=== PATIENT | female | born 1955 | race Two or more races ===

== ENCOUNTER 2023-01-28 16:27 | Emergency (ER) | payer MEDICARE, MEDICAID ==
[~2023-01-28] VITALS: Ht 154.9 cm; Wt 79.4 kg
[2023-01-28 17:17] LABS: Basophils # (auto) 0.1 10 ^3/uL (0-0.2); Basophils % (auto) 0.9 % (0.0-2.0); Eosinophils # (auto) 0.3 10 ^3/uL (0-0.8); Eosinophils % (auto) 4.5 % (0.0-7.0); Hematocrit 40.6 % (36.0-46.0); Hemoglobin 13.9 g/dL (12.2-16.2); Lymphocytes # (auto) 2.4 10 ^3/uL (0.4-5.4); Lymphocytes % (auto) 34.9 % (10.0-50.0); Mean Corpuscular Hemoglobin 31.8 pg (28.0-32.0); Mean Corpuscular Hgb Conc. 34.2 g/dL (32.0-36.0); Monocytes # (auto) 0.7 10 ^3/uL (0-1.3); Neutrophils # (auto) 3.4 10 ^3/uL (1.6-8.6); Neutrophils % (auto) 49.7 % (37.0-80.0); Nucleated Red Blood Cells % 0.2 %; Red Blood Cells 4.37 10^6/uL (4.0-5.20); Red Cell Distribution Width 12.5 % (11.8-14.3); White Blood Cell 6.9 10^3/uL (4.4-10.8)
[2023-01-28 17:21] VITALS: PULSE 65; RESP 16; O2SAT 95
[2023-01-28 18:27] LABS: Calcium 8.5 mg/dL (8.5-10.1); Potassium 4.6 mmol/L (3.5-5.1)
[2023-01-28 18:30] LABS: Albumin 3.8 g/dL (3.4-5.0); BUN/Creatinine Ratio 29.3 (10.0-20.0)
[2023-01-28 18:32] LABS: Bilirubin, Total 0.3 mg/dL (0.2-1.0); Total Protein 6.8 g/dL (6.4-8.2)
[2023-01-28 18:55] LABS: Urine Bacteria FEW /hpf (None Seen); Urine Blood Negative /uL (Negative); Urine Clarity Clear (Clear); Urine Color Yellow (Yellow); Urine Mucus FEW (None Seen); Urine Protein, UAD TRACE (Negative); Urine Urobilinogen Normal (Negative); Urine WBC 6 /hpf (0 - 5); Urine pH 5.5 (5.0-8.0)
[2023-01-28 18:57] LABS: Urine Specific Gravity > 1.050 (1.001-1.035)
[2023-01-28 19:32] VITALS: BP 111/65; PULSE 64; RESP 10; TEMP 97.6; O2SAT 97
== END 2023-01-28 19:40 | disposition short-term general hospital (02) ==
LOC: ER 16:27
DX: I63.9 Cerebral infarction, unspecified (principal); Z86.73 Personal history of transient ischemic attack (TIA), and cerebral infarction without residual deficits
CPT/HCPCS: 36415; 70450; 70496; 71045; 80053; 81001; 84484; 85025; 93005; 99285; Q9967

== ENCOUNTER 2023-03-24 15:51 | Inpatient (IN) | payer MEDICARE, MEDICAID ==
[~2023-03-24] VITALS: Ht 154.9 cm; Wt 84.6 kg
[2023-03-24] MEDS ORDERED: methylPREDNISolone SOD SUCC 40 MG/ML VL IV ONE (16:30)
[2023-03-24] MEDS ORDERED: AZITHROMYCIN 500MG/ 250ML 250 ML IV ONE (16:30)
[2023-03-24] MEDS ORDERED: IPRATROPIUM BROM 0.5 MG/2.5ML INH SOL NEB ONE (16:30)
[2023-03-24] MEDS ORDERED: ALBUTEROL SULF 2.5 MG/0.5ML(0.5%) NEB SOLN NEB ONE (16:30)
[2023-03-24] MEDS ORDERED: cefTRIAXone 1GM/50ML D5W 50 ML IV ONE (16:30)
[2023-03-24 16:41] LABS: Basophils # (auto) 0.1 10 ^3/uL (0-0.2); Eosinophils # (auto) 0.7 10 ^3/uL (0-0.8); Eosinophils % (auto) 12.3 % (0.0-7.0); Hematocrit 44.9 % (36.0-46.0); Hemoglobin 15.3 g/dL (12.2-16.2); Lymphocytes # (auto) 2.4 10 ^3/uL (0.4-5.4); Lymphocytes % (auto) 42.5 % (10.0-50.0); Mean Corpuscular Hemoglobin 31.7 pg (28.0-32.0); Mean Corpuscular Volume 93.3 fL (80.0-100.0); Monocytes # (auto) 0.9 10 ^3/uL (0-1.3); Monocytes % (auto) 15.7 % (0.0-12.0); Neutrophils # (auto) 1.6 10 ^3/uL (1.6-8.6); Neutrophils % (auto) 28.5 % (37.0-80.0); Nucleated Red Blood Cells % 0.2 %; Red Blood Cells 4.81 10^6/uL (4.0-5.20); White Blood Cell 5.6 10^3/uL (4.4-10.8)
[2023-03-24 16:54] LABS: Alanine Aminotransferase 22 U/L (7-40); Albumin 4.4 g/dL (3.2-4.8); Alkaline Phosphatase 118 U/L (46-116); Anion Gap 4 (5-15); Aspartate Aminotransferase 25 U/L (13-40); BUN/Creatinine Ratio 18.7 (10.0-20.0); Bilirubin, Total 0.6 mg/dL (0.2-1.0); Blood Urea Nitrogen 14 mg/dL (9-23); Calcium 9.5 mg/dL (8.5-10.1); Carbon Dioxide 31 mmol/L (20-30); Chloride 103 mmol/L (98-107); Glucose 102 mg/dL (74-106); Potassium 4.3 mmol/L (3.5-5.1); Sodium 138 mmol/L (136-145); Total Protein 7.1 g/dL (5.7-8.2)
[2023-03-24 17:40] LABS: Urine Bacteria NONE SEEN /hpf (None Seen); Urine Blood Negative /uL (Negative); Urine Clarity Clear (Clear); Urine Color Yellow (Yellow); Urine Mucus FEW (None Seen); Urine Protein, UAD Negative (Negative); Urine Specific Gravity 1.022 (1.001-1.035); Urine Urobilinogen Normal (Negative); Urine WBC 1 /hpf (0 - 5)
[2023-03-24] MEDS ORDERED: ONDANSETRON HCL 4 MG/2 ML VIAL IV PRN (18:30)
[2023-03-24] MEDS ORDERED: MORPHINE SULFATE INJ 2 MG/ml SYRG IV PRN (18:30)
[2023-03-24] MEDS ORDERED: DOCUSATE SOD 100 MG CAP PO PRN (18:30)
[2023-03-24] MEDS ORDERED: ENOXAPARIN SOD 100 MG/1 ML SYRINGE SC SCH (19:01)
[2023-03-24 19:05] LABS: Base Excess -1.5 mmol/L (-2.0-2.0)
[2023-03-24] MEDS ORDERED: IOHEXOL 350 MG/ML 100ML IJ ONE ×2 (19:10→21:30)
[2023-03-24 19:21] LABS: INR 1.14 (0.9-1.15); Prothrombin Time 11.9 sec (9.3-11.8)
[2023-03-24 19:45] VITALS: BP 135/83; PULSE 108; RESP 18; TEMP 99; O2SAT 93
[2023-03-24] MEDS: IPRATROPIUM BROM 0.5 MG/2.5ML INH SOL NEB SCH (21:42)
[2023-03-24] MEDS: ALBUTEROL SULF 2.5 MG/0.5ML(0.5%) NEB SOLN NEB SCH (21:42)
[2023-03-24 21:44] VITALS: PULSE 107; RESP 16; O2SAT 93
[2023-03-24 21:50] VITALS: PULSE 105; RESP 16; O2SAT 99
[2023-03-24] MEDS ORDERED: TEMAZEPAM 15 MG CAP PO PRN (22:00)
[2023-03-24 23:14] LABS: COVID19 ANTIGEN SOFIA FIA NEGATIVE (NEGATIVE); Rapid Influenza A Negative (Negative)
[2023-03-24 23:19] LABS: Rapid Influenza B Positive (Negative)
[2023-03-24] MEDS: SODIUM CHLORIDE 0.9% 1,000 ML IV SCH (23:53)
[2023-03-25] VITALS (11 sets, daily range): BP systolic 113–117; BP diastolic 55–57; PULSE 101–115; RESP 18–20; TEMP 98.3–98.4; O2SAT 90–98
[2023-03-25] MEDS ORDERED: methylPREDNISolone SOD SUCC 40 MG/ML VL IV SCH
[2023-03-25] MEDS ORDERED: AZITHROMYCIN 500MG/ 250ML 250 ML IV SCH (11:30)
[2023-03-25 11:55] LABS: Basophils # (auto) 0 10 ^3/uL (0-0.2); Basophils % (auto) 0.3 % (0.0-2.0); Eosinophils # (auto) 0 10 ^3/uL (0-0.8); Eosinophils % (auto) 0.1 % (0.0-7.0); Hematocrit 42.3 % (36.0-46.0); Hemoglobin 14.6 g/dL (12.2-16.2); Lymphocytes % (auto) 14.2 % (10.0-50.0); Mean Corpuscular Hemoglobin 32.2 pg (28.0-32.0); Mean Corpuscular Hgb Conc. 34.5 g/dL (32.0-36.0); Mean Corpuscular Volume 93.5 fL (80.0-100.0); Monocytes # (auto) 0.2 10 ^3/uL (0-1.3); Monocytes % (auto) 2.8 % (0.0-12.0); Neutrophils # (auto) 5.6 10 ^3/uL (1.6-8.6); Neutrophils % (auto) 82.6 % (37.0-80.0); Nucleated Red Blood Cells % 0.3 %; Red Blood Cells 4.52 10^6/uL (4.0-5.20); Red Cell Distribution Width 12.9 % (11.8-14.3); White Blood Cell 6.8 10^3/uL (4.4-10.8)
[2023-03-25] MEDS: cefTRIAXone 1GM/50ML D5W 50 ML IV SCH (12:10)
[2023-03-25] MEDS ORDERED: DOXYCYCLINE 100MG/250ML 250 ML IV ONE (12:30)
[2023-03-25 12:41] LABS: Alanine Aminotransferase 16 U/L (7-40); Alkaline Phosphatase 104 U/L (46-116); Anion Gap 9 (5-15); Aspartate Aminotransferase 18 U/L (13-40); BUN/Creatinine Ratio 11.4 (10.0-20.0); Bilirubin, Total 0.3 mg/dL (0.2-1.0); Blood Urea Nitrogen 9 mg/dL (9-23); Calcium 9.2 mg/dL (8.7-10.4); Carbon Dioxide 24 mmol/L (20-30); Chloride 105 mmol/L (98-107); Glucose 207 mg/dL (74-106); Potassium 4.5 mmol/L (3.5-5.1); Sodium 138 mmol/L (136-145); Total Protein 6.7 g/dL (5.7-8.2)
[2023-03-25] MEDS: HCTZ 25 MG TAB PO SCH (12:43)
[2023-03-25] MEDS: PANTOPRAZOLE 40 MG/10 ML VIAL INJ IV SCH (12:43)
[2023-03-25] MEDS: ASPirin 81 mg TAB PO SCH (12:43)
[2023-03-25] MEDS: ALBUTEROL SULF 2.5 MG/0.5ML(0.5%) NEB SOLN NEB SCH ×5 (13:23→22:34)
[2023-03-25] MEDS: IPRATROPIUM BROM 0.5 MG/2.5ML INH SOL NEB SCH ×5 (13:23→22:34)
[2023-03-25] MEDS: SODIUM CHLORIDE 0.9% 1,000 ML IV SCH ×2 (14:55→15:33)
[2023-03-25] MEDS ORDERED: HYDR12.59 PO (18:53)
[2023-03-25] MEDS ORDERED: ALBU108A5 INH (18:53)
[2023-03-25] MEDS ORDERED: DIPH25TA31 PO (18:53)
[2023-03-25] MEDS ORDERED: ASPI-325 PO (18:53)
[2023-03-25] MEDS ORDERED: AMOX875T4 PO (18:53)
[2023-03-25] MEDS: PROMETHAZINE W/CODEINE 5 ML ORAL SYRUP PO PRN (21:53)
[2023-03-26] VITALS (20 sets, daily range): BP systolic 107–123; BP diastolic 51–73; PULSE 85–113; RESP 15–94; TEMP 98–98.7; O2SAT 20–98
[2023-03-26] MEDS: DOXYCYCLINE 100MG/250ML 250 ML IV SCH ×2 (00:12→12:14)
[2023-03-26] MEDS: SODIUM CHLORIDE 0.9% 1,000 ML IV SCH ×2 (00:23→09:50)
[2023-03-26] MEDS: IPRATROPIUM BROM 0.5 MG/2.5ML INH SOL NEB SCH ×5 (02:39→19:50)
[2023-03-26] MEDS: ALBUTEROL SULF 2.5 MG/0.5ML(0.5%) NEB SOLN NEB SCH ×5 (02:39→19:49)
[2023-03-26] MEDS: cefTRIAXone 1GM/50ML D5W 50 ML IV SCH (08:51)
[2023-03-26] MEDS: PROMETHAZINE W/CODEINE 5 ML ORAL SYRUP PO PRN ×2 (09:42→21:33)
[2023-03-26] MEDS: HCTZ 25 MG TAB PO SCH (09:44)
[2023-03-26] MEDS: ASPirin 81 mg TAB PO SCH (09:44)
[2023-03-26] MEDS: PANTOPRAZOLE 40 MG/10 ML VIAL INJ IV SCH (09:45)
[2023-03-26] MEDS: methylPREDNISolone SOD SUCC 40 MG/ML VL IV SCH ×3 (09:45→21:25)
[2023-03-26] MEDS: OSELTAMIVIR 75 MG CAP PO SCH ×2 (09:45→21:24)
[2023-03-26] MEDS: ENOXAPARIN SOD 40 MG/0.4 ML SYRINGE SC SCH (09:46)
[2023-03-27] VITALS (20 sets, daily range): BP systolic 107–127; BP diastolic 59–72; PULSE 92–113; RESP 16–20; TEMP 97.7–98.8; O2SAT 94–100
[2023-03-27] MEDS: DOXYCYCLINE 100MG/250ML 250 ML IV SCH ×2 (00:41→12:17)
[2023-03-27] MEDS: SODIUM CHLORIDE 0.9% 1,000 ML IV SCH ×3 (00:45→16:06)
[2023-03-27] MEDS: IPRATROPIUM BROM 0.5 MG/2.5ML INH SOL NEB SCH ×7 (02:26→22:40)
[2023-03-27] MEDS: ALBUTEROL SULF 2.5 MG/0.5ML(0.5%) NEB SOLN NEB SCH ×6 (02:26→22:40)
[2023-03-27] MEDS: cefTRIAXone 1GM/50ML D5W 50 ML IV SCH (08:39)
[2023-03-27] MEDS: ASPirin 81 mg TAB PO SCH (09:49)
[2023-03-27] MEDS: HCTZ 25 MG TAB PO SCH (09:52)
[2023-03-27] MEDS: OSELTAMIVIR 75 MG CAP PO SCH ×2 (09:54→22:15)
[2023-03-27] MEDS: PROMETHAZINE W/CODEINE 5 ML ORAL SYRUP PO PRN ×2 (09:56→15:29)
[2023-03-27] MEDS: ENOXAPARIN SOD 40 MG/0.4 ML SYRINGE SC SCH (09:57)
[2023-03-27] MEDS: PANTOPRAZOLE 40 MG/10 ML VIAL INJ IV SCH (10:50)
[2023-03-27] MEDS: methylPREDNISolone SOD SUCC 40 MG/ML VL IV SCH ×2 (10:51→22:15)
[2023-03-28] VITALS (19 sets, daily range): BP systolic 107–138; BP diastolic 61–83; PULSE 88–128; RESP 16–83; TEMP 97.6–98.3; O2SAT 92–100
[2023-03-28] MEDS: DOXYCYCLINE 100MG/250ML 250 ML IV SCH ×3 (00:24→23:08)
[2023-03-28] MEDS: IPRATROPIUM BROM 0.5 MG/2.5ML INH SOL NEB SCH ×6 (02:54→21:48)
[2023-03-28] MEDS: ALBUTEROL SULF 2.5 MG/0.5ML(0.5%) NEB SOLN NEB SCH ×6 (02:54→21:47)
[2023-03-28] MEDS: SODIUM CHLORIDE 0.9% 1,000 ML IV SCH ×3 (04:48→22:30)
[2023-03-28] MEDS: cefTRIAXone 1GM/50ML D5W 50 ML IV SCH (08:32)
[2023-03-28] MEDS: PROMETHAZINE W/CODEINE 5 ML ORAL SYRUP PO PRN (08:33)
[2023-03-28] MEDS: ASPirin 81 mg TAB PO SCH (09:45)
[2023-03-28] MEDS: HCTZ 25 MG TAB PO SCH (09:45)
[2023-03-28] MEDS: ENOXAPARIN SOD 40 MG/0.4 ML SYRINGE SC SCH (09:46)
[2023-03-28] MEDS: OSELTAMIVIR 75 MG CAP PO SCH ×2 (09:46→21:19)
[2023-03-28] MEDS: methylPREDNISolone SOD SUCC 40 MG/ML VL IV SCH ×2 (09:46→21:19)
[2023-03-28] MEDS: PANTOPRAZOLE 40 MG/10 ML VIAL INJ IV SCH (09:46)
[2023-03-28] MEDS ORDERED: ALBUTEROL SULF HFA 90MCG INH 200DOSE IN PRN (11:30)
[2023-03-28] MEDS ORDERED: ALBUTEROL SULF 2.5 MG/0.5ML(0.5%) NEB SOLN NEB PRN (11:45)
[2023-03-28] MEDS: guaiFENesin-CODEINE Liq 5 ML UD PO PRN ×2 (17:04→21:19)
[2023-03-29] VITALS (18 sets, daily range): BP systolic 110–132; BP diastolic 55–82; PULSE 84–99; RESP 15–20; TEMP 97.5–98; O2SAT 91–100
[2023-03-29] MEDS: ALBUTEROL SULF 2.5 MG/0.5ML(0.5%) NEB SOLN NEB SCH ×6 (02:04→21:49)
[2023-03-29] MEDS: IPRATROPIUM BROM 0.5 MG/2.5ML INH SOL NEB SCH ×6 (02:04→21:49)
[2023-03-29] MEDS: cefTRIAXone 1GM/50ML D5W 50 ML IV SCH (08:30)
[2023-03-29] MEDS: HCTZ 25 MG TAB PO SCH (08:30)
[2023-03-29] MEDS: ENOXAPARIN SOD 40 MG/0.4 ML SYRINGE SC SCH (08:30)
[2023-03-29] MEDS: OSELTAMIVIR 75 MG CAP PO SCH ×2 (08:30→21:56)
[2023-03-29] MEDS: methylPREDNISolone SOD SUCC 40 MG/ML VL IV SCH (08:30)
[2023-03-29] MEDS: ASPirin 81 mg TAB PO SCH (08:30)
[2023-03-29] MEDS: PANTOPRAZOLE 40 MG/10 ML VIAL INJ IV SCH (08:30)
[2023-03-29] MEDS: SODIUM CHLORIDE 0.9% 1,000 ML IV SCH ×2 (08:42→19:01)
[2023-03-29] MEDS: DOXYCYCLINE 100MG/250ML 250 ML IV SCH (12:09)
[2023-03-29] MEDS ORDERED: predniSONE 20 MG TAB PO ONE (12:15)
[2023-03-29] MEDS: guaiFENesin-CODEINE Liq 5 ML UD PO PRN (19:02)
[2023-03-30] VITALS (12 sets, daily range): BP systolic 115–134; BP diastolic 70–77; PULSE 81–107; RESP 14–19; TEMP 98.2–98.4; O2SAT 90–98
[2023-03-30] MEDS: DOXYCYCLINE 100MG/250ML 250 ML IV SCH ×2 (00:33→12:19)
[2023-03-30] MEDS: ALBUTEROL SULF 2.5 MG/0.5ML(0.5%) NEB SOLN NEB SCH ×4 (02:02→13:45)
[2023-03-30] MEDS: IPRATROPIUM BROM 0.5 MG/2.5ML INH SOL NEB SCH ×4 (02:02→13:45)
[2023-03-30] MEDS: SODIUM CHLORIDE 0.9% 1,000 ML IV SCH ×2 (04:24→09:05)
[2023-03-30] MEDS: ENOXAPARIN SOD 40 MG/0.4 ML SYRINGE SC SCH (09:06)
[2023-03-30] MEDS: HCTZ 25 MG TAB PO SCH (09:06)
[2023-03-30] MEDS: OSELTAMIVIR 75 MG CAP PO SCH (09:06)
[2023-03-30] MEDS: ASPirin 81 mg TAB PO SCH (09:06)
[2023-03-30] MEDS: PANTOPRAZOLE 40 MG/10 ML VIAL INJ IV SCH (09:06)
[2023-03-30] MEDS ORDERED: predniSONE 20 MG TAB PO SCH (10:00)
[2023-03-30] MEDS ORDERED: DOXY-346 PO (10:24)
[2023-03-30] MEDS ORDERED: IPRIH IN (10:24)
[2023-03-30] MEDS ORDERED: PRED20TA2 PO (10:24)
[2023-03-30] MEDS ORDERED: ALBUAER3 IN (10:24)
[2023-03-30 13:52] LABS: Base Excess -0.8 mmol/L (-2.0-2.0)
== END 2023-03-30 16:00 | disposition home or self-care (01) | DRG 177 ==
LOC: ER 15:51 → OVERFLOW 18:33 → EAST 03-25 17:56
PROVIDERS: ADMIT Nurse Practitioner Family; ATTEND Family Medicine
DX: J10.08 Influenza due to other identified influenza virus with other specified pneumonia (principal); J96.01 Acute respiratory failure with hypoxia; J15.69 Pneumonia due to other Gram-negative bacteria; J44.1 Chronic obstructive pulmonary disease with (acute) exacerbation; J45.901 Unspecified asthma with (acute) exacerbation; J44.0 Chronic obstructive pulmonary disease with (acute) lower respiratory infection; J15.9 Unspecified bacterial pneumonia; E78.00 Pure hypercholesterolemia, unspecified; I10 Essential (primary) hypertension; K80.20 Calculus of gallbladder without cholecystitis without obstruction; M19.90 Unspecified osteoarthritis, unspecified site; M81.0 Age-related osteoporosis without current pathological fracture; Z20.822 Contact with and (suspected) exposure to COVID-19; E66.9 Obesity, unspecified; Z68.35 Body mass index [BMI] 35.0-35.9, adult; F17.210 Nicotine dependence, cigarettes, uncomplicated; G47.33 Obstructive sleep apnea (adult) (pediatric); Z86.73 Personal history of transient ischemic attack (TIA), and cerebral infarction without residual deficits; Z85.07 Personal history of malignant neoplasm of pancreas; Z85.05 Personal history of malignant neoplasm of liver; Z85.028 Personal history of other malignant neoplasm of stomach; Z85.01 Personal history of malignant neoplasm of esophagus; Z83.3 Family history of diabetes mellitus; Z82.49 Family history of ischemic heart disease and other diseases of the circulatory system; Z80.0 Family history of malignant neoplasm of digestive organs; Z79.82 Long term (current) use of aspirin
CPT/HCPCS: 36415; 36600; 71045; 71275; 76705; 78226; 80053; 81001; 82805; 82962; 83880; 84484; 85025; 85049; 85379; 85610; 87081; 87426; 87804; 93005; 93970; 94640; 96365; 96368; 96375; C9113; G0378; J0696; J3490

== ENCOUNTER 2023-05-13 13:23 | Inpatient (IN) | payer MEDICARE, MEDICAID ==
[~2023-05-13] VITALS: Ht 154.9 cm; Wt 84.3 kg
[~2023-05-13 13:23] MED LIST: ALBU108A5 INH; ALBUAER3 IN; AMOX875T4 PO; ASPI-325 PO; DIPH25TA31 PO; DOXY-346 PO; HYDR12.59 PO; IPRIH IN; PRED20TA2 PO
[2023-05-13 14:31] LABS: Basophils # (auto) 0 10 ^3/uL (0-0.2); Basophils % (auto) 0.2 % (0.0-2.0); Eosinophils # (auto) 1.4 10 ^3/uL (0-0.8); Eosinophils % (auto) 15.4 % (0.0-7.0); Hematocrit 43.4 % (36.0-46.0); Hemoglobin 15.1 g/dL (12.2-16.2); Lymphocytes # (auto) 2.9 10 ^3/uL (0.4-5.4); Lymphocytes % (auto) 32.5 % (10.0-50.0); Mean Corpuscular Hemoglobin 32.3 pg (28.0-32.0); Mean Corpuscular Hgb Conc. 34.8 g/dL (32.0-36.0); Mean Corpuscular Volume 92.9 fL (80.0-100.0); Monocytes # (auto) 0.8 10 ^3/uL (0-1.3); Monocytes % (auto) 9.1 % (0.0-12.0); Neutrophils # (auto) 3.8 10 ^3/uL (1.6-8.6); Neutrophils % (auto) 42.8 % (37.0-80.0); Nucleated Red Blood Cells % 0.1 %; Red Blood Cells 4.67 10^6/uL (4.0-5.20); Red Cell Distribution Width 12.8 % (11.8-14.3); White Blood Cell 8.9 10^3/uL (4.4-10.8)
[2023-05-13 14:52] LABS: INR 1.12 (0.9-1.15); Partial Thromboplastin Time 28.9 SEC (24.5-34.5); Prothrombin Time 11.7 sec (9.3-11.8)
[2023-05-13] MEDS ORDERED: ALBUTEROL SULF 2.5 MG/0.5ML(0.5%) NEB SOLN NEB ONE (15:00)
[2023-05-13] MEDS ORDERED: methylPREDNISolone SOD SUCC 125 MG/2 ML VL IV ONE (15:00)
[2023-05-13] MEDS ORDERED: IPRATROPIUM BROM 0.5 MG/2.5ML INH SOL NEB ONE (15:00)
[2023-05-13 15:06] LABS: Alanine Aminotransferase 18 U/L (7-40); Albumin 4.5 g/dL (3.2-4.8); Alkaline Phosphatase 135 U/L (46-116); Anion Gap 6 (5-15); Aspartate Aminotransferase 22 U/L (13-40); BUN/Creatinine Ratio 20.5 (10.0-20.0); Blood Urea Nitrogen 16 mg/dL (9-23); Calcium 9.2 mg/dL (8.7-10.4); Carbon Dioxide 30 mmol/L (20-30); Chloride 103 mmol/L (98-107); Glucose 88 mg/dL (74-106); Potassium 3.9 mmol/L (3.5-5.1); Sodium 139 mmol/L (136-145)
[2023-05-13 15:07] LABS: Bilirubin, Total 0.5 mg/dL (0.2-1.0); Total Protein 6.7 g/dL (5.7-8.2)
[2023-05-13] MEDS ORDERED: ALBUTEROL MEDNEB 2.5 mg/3ml NEB ONE (15:57)
[2023-05-13] MEDS ORDERED: ONDANSETRON HCL 4 MG/2 ML VIAL IV PRN (18:45)
[2023-05-13] MEDS ORDERED: DOCUSATE SOD 100 MG CAP PO PRN (18:45)
[2023-05-13 20:15] VITALS: PULSE 96; RESP 16; O2SAT 94
[2023-05-13] MEDS ORDERED: IOHEXOL 350 MG/ML 100ML IJ ONE (20:25)
[2023-05-13 21:11] VITALS: BP 136/64; PULSE 96; RESP 16; O2SAT 94
[2023-05-13] MEDS: methylPREDNISolone SOD SUCC 40 MG/ML VL IV SCH (22:00)
[2023-05-13 22:50] VITALS: PULSE 91; RESP 18; O2SAT 92
[2023-05-13] MEDS: ALBUTEROL MEDNEB 2.5 mg/3ml NEB NEB SCH (22:58)
[2023-05-13] MEDS: IPRATROPIUM BROM 0.5 MG/2.5ML INH SOL NEB SCH (22:58)
[2023-05-13 23:00] VITALS: PULSE 93; RESP 18; O2SAT 95
[2023-05-13 23:18] VITALS: BP 105/44; PULSE 98; RESP 20; TEMP 98.1; O2SAT 100
[2023-05-13] MEDS ORDERED: PRAV20TA3 PO (23:21)
[2023-05-13] MEDS ORDERED: OMEG1CAP36 PO (23:22)
[2023-05-13] MEDS ORDERED: NITR1CAP23 PO (23:23)
[2023-05-13] MEDS ORDERED: DOCU1CAP46 PO (23:26)
[2023-05-13] MEDS ORDERED: IBUP-1455 PO (23:46)
[2023-05-13] MEDS ORDERED: CIPR500T4 PO (23:46)
[2023-05-13] MEDS ORDERED: HYDR-4902 PO (23:47)
[2023-05-14] VITALS (17 sets, daily range): BP systolic 104–121; BP diastolic 57–79; PULSE 88–117; RESP 16–20; TEMP 98.2–98.4; O2SAT 93–98
[2023-05-14] MEDS: ACETAMINOPHEN 325 MG TAB PO PRN ×2 (00:06→13:56)
[2023-05-14] MEDS: methylPREDNISolone SOD SUCC 40 MG/ML VL IV SCH ×3 (05:24→22:07)
[2023-05-14 05:55] LABS: Basophils # (auto) 0 10 ^3/uL (0-0.2); Basophils % (auto) 0.5 % (0.0-2.0); Eosinophils # (auto) 0 10 ^3/uL (0-0.8); Eosinophils % (auto) 0.1 % (0.0-7.0); Hematocrit 43.4 % (36.0-46.0); Hemoglobin 14.9 g/dL (12.2-16.2); Lymphocytes # (auto) 0.9 10 ^3/uL (0.4-5.4); Lymphocytes % (auto) 16.3 % (10.0-50.0); Mean Corpuscular Hemoglobin 31.9 pg (28.0-32.0); Mean Corpuscular Hgb Conc. 34.3 g/dL (32.0-36.0); Mean Corpuscular Volume 93.1 fL (80.0-100.0); Monocytes # (auto) 0 10 ^3/uL (0-1.3); Monocytes % (auto) 0.8 % (0.0-12.0); Neutrophils # (auto) 4.3 10 ^3/uL (1.6-8.6); Neutrophils % (auto) 82.3 % (37.0-80.0); Nucleated Red Blood Cells % 0.1 %; Red Blood Cells 4.66 10^6/uL (4.0-5.20); Red Cell Distribution Width 12.8 % (11.8-14.3); White Blood Cell 5.3 10^3/uL (4.4-10.8)
[2023-05-14 06:04] LABS: Alanine Aminotransferase 16 U/L (7-40); Albumin 4.4 g/dL (3.2-4.8); Alkaline Phosphatase 119 U/L (46-116); Anion Gap 10 (5-15); Aspartate Aminotransferase 17 U/L (13-40); BUN/Creatinine Ratio 18.6 (10.0-20.0); Blood Urea Nitrogen 16 mg/dL (9-23); Calcium 9.4 mg/dL (8.7-10.4); Carbon Dioxide 27 mmol/L (20-30); Chloride 101 mmol/L (98-107); Glucose 166 mg/dL (74-106); Potassium 3.6 mmol/L (3.5-5.1); Sodium 138 mmol/L (136-145)
[2023-05-14 06:05] LABS: Bilirubin, Total 0.5 mg/dL (0.2-1.0); Total Protein 6.8 g/dL (5.7-8.2)
[2023-05-14] MEDS: ALBUTEROL MEDNEB 2.5 mg/3ml NEB NEB SCH ×5 (06:56→22:17)
[2023-05-14] MEDS: IPRATROPIUM BROM 0.5 MG/2.5ML INH SOL NEB SCH ×5 (06:56→22:17)
[2023-05-14] MEDS: ASPirin-EC 81 mg tab PO SCH (10:14)
[2023-05-14] MEDS: hydroCHLOROthiazide 25 MG TAB PO SCH (10:15)
[2023-05-14] MEDS: PANTOPRAZOLE 40 MG TAB PO SCH (10:15)
[2023-05-15] VITALS (17 sets, daily range): BP systolic 91–103; BP diastolic 45–56; PULSE 83–106; RESP 18–20; TEMP 97.8–98.8; O2SAT 92–98
[2023-05-15] MEDS: methylPREDNISolone SOD SUCC 40 MG/ML VL IV SCH ×3 (06:27→22:16)
[2023-05-15] MEDS: IPRATROPIUM BROM 0.5 MG/2.5ML INH SOL NEB SCH ×5 (06:37→22:07)
[2023-05-15] MEDS: ALBUTEROL MEDNEB 2.5 mg/3ml NEB NEB SCH ×5 (06:37→22:07)
[2023-05-15] MEDS: ASPirin-EC 81 mg tab PO SCH (10:10)
[2023-05-15] MEDS: PANTOPRAZOLE 40 MG TAB PO SCH (10:10)
[2023-05-15] MEDS: hydroCHLOROthiazide 25 MG TAB PO SCH (10:11)
[2023-05-15] MEDS ORDERED: AZITHROMYCIN 250 MG TAB PO ONE (17:00)
[2023-05-15] MEDS ORDERED: DOCUSATE SOD 100 MG CAP PO ONE (17:00)
[2023-05-15] MEDS: DOCUSATE SOD 100 MG CAP PO SCH (22:16)
[2023-05-16] VITALS (11 sets, daily range): BP systolic 106–108; BP diastolic 53–66; PULSE 84–106; RESP 16–20; TEMP 37; O2SAT 90–99
[2023-05-16] MEDS: methylPREDNISolone SOD SUCC 40 MG/ML VL IV SCH ×2 (05:13→14:08)
[2023-05-16] MEDS: IPRATROPIUM BROM 0.5 MG/2.5ML INH SOL NEB SCH ×3 (07:03→14:28)
[2023-05-16] MEDS: ALBUTEROL MEDNEB 2.5 mg/3ml NEB NEB SCH ×3 (07:03→14:28)
[2023-05-16] MEDS: ASPirin-EC 81 mg tab PO SCH (09:05)
[2023-05-16] MEDS: PANTOPRAZOLE 40 MG TAB PO SCH (09:06)
[2023-05-16] MEDS: DOCUSATE SOD 100 MG CAP PO SCH (09:06)
[2023-05-16] MEDS: hydroCHLOROthiazide 25 MG TAB PO SCH (09:09)
[2023-05-16] MEDS: ACETAMINOPHEN 325 MG TAB PO PRN ×2 (09:12→15:54)
[2023-05-16] MEDS ORDERED: AZITHROMYCIN 250 MG TAB PO SCH (10:00)
[2023-05-16] MEDS ORDERED: AZIT500T PO (16:38)
[2023-05-16] MEDS ORDERED: PRED10TA PO ×2 (16:40→16:41)
[2023-05-16] MEDS ORDERED: PANT40TA2 PO (16:43)
== END 2023-05-16 19:12 | disposition home or self-care (01) | DRG 203 ==
LOC: ER 13:23 → WEST WING 18:40 → OVERFLOW 18:40 → WEST WING 23:12
PROVIDERS: ADMIT Nurse Practitioner Family; ATTEND Internal Medicine
DX: J45.901 Unspecified asthma with (acute) exacerbation (principal); I10 Essential (primary) hypertension; E66.9 Obesity, unspecified; R09.02 Hypoxemia; K80.20 Calculus of gallbladder without cholecystitis without obstruction; R59.9 Enlarged lymph nodes, unspecified; Z86.73 Personal history of transient ischemic attack (TIA), and cerebral infarction without residual deficits; Z68.35 Body mass index [BMI] 35.0-35.9, adult
CPT/HCPCS: 36415; 36600; 71045; 71275; 76536; 80053; 82805; 83735; 83880; 84484; 85025; 85379; 85610; 85730; 93005; 93306; 94640; 96374; 99291; G0378

== ENCOUNTER 2023-05-25 10:59 | Inpatient (IN) | payer MEDICARE, MEDICAID ==
[~2023-05-25] VITALS: Ht 154.9 cm; Wt 82.0 kg
[~2023-05-25 10:59] MED LIST changes: -AMOX875T4 PO; +AZIT500T PO; -DIPH25TA31 PO; -DOXY-346 PO; +OMEG1CAP36 PO; +PANT40TA2 PO; +PRAV20TA3 PO; +PRED10TA PO
[2023-05-25] MEDS ORDERED: IPRATROPIUM BROM 0.5 MG/2.5ML INH SOL HHN ONE ×2 (11:30→17:45)
[2023-05-25] MEDS ORDERED: methylPREDNISolone SOD SUCC 125 MG/2 ML VL IV ONE (11:30)
[2023-05-25] MEDS ORDERED: ALBUTEROL SULF 2.5 MG/0.5ML(0.5%) NEB SOLN HHN ONE ×2 (11:30→17:45)
[2023-05-25 12:04] LABS: Basophils # (auto) 0.1 10 ^3/uL (0-0.2); Basophils % (auto) 0.4 % (0.0-2.0); Eosinophils # (auto) 0.7 10 ^3/uL (0-0.8); Eosinophils % (auto) 6.1 % (0.0-7.0); Hematocrit 42.9 % (36.0-46.0); Hemoglobin 14.5 g/dL (12.2-16.2); Lymphocytes # (auto) 0.8 10 ^3/uL (0.4-5.4); Lymphocytes % (auto) 7.2 % (10.0-50.0); Mean Corpuscular Hemoglobin 31.9 pg (28.0-32.0); Mean Corpuscular Hgb Conc. 33.8 g/dL (32.0-36.0); Mean Corpuscular Volume 94.5 fL (80.0-100.0); Monocytes # (auto) 0.6 10 ^3/uL (0-1.3); Monocytes % (auto) 5.1 % (0.0-12.0); Neutrophils # (auto) 9.5 10 ^3/uL (1.6-8.6); Neutrophils % (auto) 81.2 % (37.0-80.0); Red Blood Cells 4.55 10^6/uL (4.0-5.20); Red Cell Distribution Width 13.1 % (11.8-14.3); White Blood Cell 11.8 10^3/uL (4.4-10.8)
[2023-05-25 12:21] LABS: Alanine Aminotransferase 15 U/L (7-40); Albumin 4.3 g/dL (3.2-4.8); Alkaline Phosphatase 105 U/L (46-116); Anion Gap 7 (5-15); Aspartate Aminotransferase 17 U/L (13-40); Bilirubin, Total 0.6 mg/dL (0.2-1.0); Carbon Dioxide 26 mmol/L (20-30); Chloride 104 mmol/L (98-107); Glucose 95 mg/dL (74-106); Sodium 137 mmol/L (136-145); Total Protein 6.6 g/dL (5.7-8.2)
[2023-05-25 12:23] LABS: BUN/Creatinine Ratio 7.5 (10.0-20.0); Blood Urea Nitrogen < 5 mg/dL (9-23)
[2023-05-25] MEDS ORDERED: ACETAMINOPHEN 325 MG TAB PO ONE (13:15)
[2023-05-25] MEDS ORDERED: METH4PAK PO (16:49)
[2023-05-25] MEDS ORDERED: AZIT1POW PO (16:49)
[2023-05-25 20:21] LABS: COVID19 ANTIGEN SOFIA FIA NEGATIVE (NEGATIVE); Rapid Influenza A Negative (Negative); Rapid Influenza B Negative (Negative)
[2023-05-26] VITALS (9 sets, daily range): BP systolic 115–158; BP diastolic 61–86; PULSE 77–110; RESP 16–27; TEMP 97.7–98.5; O2SAT 91–94
[2023-05-26] MEDS ORDERED: IPRATROPIUM BROM 0.5 MG/2.5ML INH SOL NEB PRN (05:30)
[2023-05-26] MEDS ORDERED: ACETAMINOPHEN 325 MG TAB PO PRN (05:30)
[2023-05-26] MEDS ORDERED: ONDANSETRON HCL 4 MG/2 ML VIAL IV PRN (05:30)
[2023-05-26] MEDS ORDERED: ALBUTEROL SULF 2.5 MG/0.5ML(0.5%) NEB SOLN NEB PRN (05:30)
[2023-05-26] MEDS ORDERED: NITROGLYCERIN 0.4 MG SL TAB SL PRN (05:30)
[2023-05-26] MEDS ORDERED: MORPHINE SULFATE INJ 2 MG/ml SYRG IV PRN (05:30)
[2023-05-26] MEDS: methylPREDNISolone SOD SUCC 40 MG/ML VL IV SCH ×2 (06:22→21:23)
[2023-05-26 07:01] LABS: Hematocrit 42.5 % (36.0-46.0); Hemoglobin 14.2 g/dL (12.2-16.2); Mean Corpuscular Hemoglobin 31.9 pg (28.0-32.0); Mean Corpuscular Hgb Conc. 33.4 g/dL (32.0-36.0); Mean Corpuscular Volume 95.3 fL (80.0-100.0); Red Blood Cells 4.46 10^6/uL (4.0-5.20); Red Cell Distribution Width 13.3 % (11.8-14.3); White Blood Cell 12.1 10^3/uL (4.4-10.8)
[2023-05-26 07:06] LABS: Basophils % (manual) 0 (0.0-2.0); Blast Cells 0; Eosinophils % (manual) 0 (0-7); Myelocytes % 0; Promyelocytes % 0; Reactive Lymphocytes 0
[2023-05-26 07:15] LABS: Alanine Aminotransferase 18 U/L (7-40); Alkaline Phosphatase 99 U/L (46-116); Anion Gap 7 (5-15); Aspartate Aminotransferase 11 U/L (13-40); BUN/Creatinine Ratio 18.8 (10.0-20.0); Blood Urea Nitrogen 13 mg/dL (9-23); Calcium 9.1 mg/dL (8.7-10.4); Carbon Dioxide 25 mmol/L (20-30); Chloride 105 mmol/L (98-107); Glucose 138 mg/dL (74-106); Potassium 4.3 mmol/L (3.5-5.1); Sodium 137 mmol/L (136-145)
[2023-05-26 07:16] LABS: Albumin 4.3 g/dL (3.2-4.8); Bilirubin, Total 0.5 mg/dL (0.2-1.0); Total Protein 6.6 g/dL (5.7-8.2)
[2023-05-26] MEDS ORDERED: OMEP20TA PO (08:48)
[2023-05-26 09:34] LABS: Band Neutrophils % (manual) 7; Lymphocytes % (manual) 3 (10.0-50.0); Metamyelocytes % 2; Monocytes % (manual) 3 (0-12); Platelet Estimate Adequate
[2023-05-26] MEDS ORDERED: ENOXAPARIN SOD 40 MG/0.4 ML SYRINGE SC ONE (13:15)
[2023-05-26] MEDS ORDERED: ALBUTEROL SULF 2.5 MG/0.5ML(0.5%) NEB SOLN NEB SCH (13:30)
[2023-05-26] MEDS ORDERED: IPRATROPIUM BROM 0.5 MG/2.5ML INH SOL NEB SCH (13:30)
[2023-05-26] MEDS: ALBUTEROL SULF 2.5 MG/0.5ML(0.5%) NEB SOLN NEB SCH (16:33)
[2023-05-26] MEDS: IPRATROPIUM BROM 0.5 MG/2.5ML INH SOL NEB SCH (16:33)
[2023-05-27] VITALS (8 sets, daily range): BP systolic 105–136; BP diastolic 71–77; PULSE 73–90; RESP 18–81; TEMP 97.7–97.9; O2SAT 89–95
[2023-05-27] MEDS: ALBUTEROL SULF 2.5 MG/0.5ML(0.5%) NEB SOLN NEB SCH ×2 (07:01→11:48)
[2023-05-27] MEDS: IPRATROPIUM BROM 0.5 MG/2.5ML INH SOL NEB SCH ×2 (07:01→11:48)
[2023-05-27 07:19] LABS: Basophils # (auto) 0 10 ^3/uL (0-0.2); Basophils % (auto) 0.1 % (0.0-2.0); Eosinophils # (auto) 0 10 ^3/uL (0-0.8); Hematocrit 41.3 % (36.0-46.0); Hemoglobin 13.8 g/dL (12.2-16.2); Lymphocytes % (auto) 5.4 % (10.0-50.0); Mean Corpuscular Hemoglobin 31.8 pg (28.0-32.0); Mean Corpuscular Hgb Conc. 33.5 g/dL (32.0-36.0); Mean Corpuscular Volume 94.9 fL (80.0-100.0); Monocytes # (auto) 0.6 10 ^3/uL (0-1.3); Monocytes % (auto) 3.2 % (0.0-12.0); Neutrophils # (auto) 16.7 10 ^3/uL (1.6-8.6); Neutrophils % (auto) 91.3 % (37.0-80.0); Red Blood Cells 4.35 10^6/uL (4.0-5.20); Red Cell Distribution Width 13.3 % (11.8-14.3); White Blood Cell 18.3 10^3/uL (4.4-10.8)
[2023-05-27 07:20] LABS: Anion Gap 9 (5-15); Carbon Dioxide 27 mmol/L (20-30); Chloride 104 mmol/L (98-107); Potassium 4.5 mmol/L (3.5-5.1); Sodium 140 mmol/L (136-145)
[2023-05-27 07:21] LABS: Calcium 9.3 mg/dL (8.5-10.1)
[2023-05-27 07:22] LABS: INR 1.09 (0.9-1.15); Prothrombin Time 11.4 sec (9.3-11.8)
[2023-05-27 07:26] LABS: BUN/Creatinine Ratio 23.5 (10.0-20.0); Blood Urea Nitrogen 16 mg/dL (9-23); Glucose 122 mg/dL (74-106); Triglycerides 107 mg/dL (< 150)
[2023-05-27 07:27] LABS: LDL Cholesterol 130 mg/dL (< 100)
[2023-05-27 07:28] LABS: Cholesterol 197 mg/dL (< 200); HDL Cholesterol 55 mg/dL (40-59)
[2023-05-27 08:00] LABS: Magnesium 2.4 mg/dL (1.6-2.6)
[2023-05-27] MEDS: methylPREDNISolone SOD SUCC 40 MG/ML VL IV SCH (09:38)
[2023-05-27 09:53] LABS: Base Excess 0.7 mmol/L (-2.0-2.0)
[2023-05-27] MEDS ORDERED: ENOXAPARIN SOD 40 MG/0.4 ML SYRINGE SC SCH (10:00)
[2023-05-27] MEDS ORDERED: PANTOPRAZOLE 40 MG TAB PO SCH (10:00)
[2023-05-27] MEDS ORDERED: hydroCHLOROthiazide 25 MG TAB PO SCH (10:00)
[2023-05-27] MEDS ORDERED: ASPirin-EC 81 mg tab PO SCH (10:00)
[2023-05-27] MEDS ORDERED: AZIT500T66 PO (10:16)
[2023-05-27] MEDS ORDERED: FLUT1AER3 IN (10:16)
[2023-05-27] MEDS ORDERED: PRED20TA2 PO (10:16)
[2023-05-27] MEDS ORDERED: PRAVASTATIN SODIUM 20 MG TAB PO SCH (22:00)
== END 2023-05-27 15:20 | disposition home or self-care (01) | DRG 189 ==
LOC: ER 10:59 → TELE 05-26 05:30 → TELE-WESTW 05-26 08:18
PROVIDERS: ADMIT Internal Medicine Pulmonary Disease; ATTEND Internal Medicine Pulmonary Disease
DX: J96.20 Acute and chronic respiratory failure, unspecified whether with hypoxia or hypercapnia (principal); J45.901 Unspecified asthma with (acute) exacerbation; J44.1 Chronic obstructive pulmonary disease with (acute) exacerbation; Z20.822 Contact with and (suspected) exposure to COVID-19; E78.5 Hyperlipidemia, unspecified; E66.9 Obesity, unspecified; I10 Essential (primary) hypertension; Z68.34 Body mass index [BMI] 34.0-34.9, adult; Z86.73 Personal history of transient ischemic attack (TIA), and cerebral infarction without residual deficits; Z87.891 Personal history of nicotine dependence; Z90.710 Acquired absence of both cervix and uterus
CPT/HCPCS: 36415; 36600; 71046; 80048; 80053; 80061; 82805; 83735; 83880; 84443; 85007; 85025; 85027; 85379; 85610; 87081; 87426; 87804; 94640; 96374; 97110; 97116; 97163; 97530; G0378

== ENCOUNTER 2023-06-10 09:21 | Emergency (ER) | payer MEDICARE, MEDICAID ==
[~2023-06-10] VITALS: Ht 154.9 cm; Wt 82.8 kg
[~2023-06-10 09:21] MED LIST changes: -AZIT500T PO; +AZIT500T66 PO; +FLUT1AER3 IN; +METH4PAK PO; +OMEP20TA PO
[2023-06-10 10:00] VITALS: BP 120/50; PULSE 87; RESP 18; TEMP 97.5; O2SAT 96
[2023-06-10] MEDS ORDERED: CIPR0.3S67 OP (10:19)
== END 2023-06-10 10:27 | disposition home or self-care (01) ==
LOC: ER 09:21
DX: H10.33 Unspecified acute conjunctivitis, bilateral (principal); I10 Essential (primary) hypertension; J44.9 Chronic obstructive pulmonary disease, unspecified; Z86.73 Personal history of transient ischemic attack (TIA), and cerebral infarction without residual deficits; Z90.710 Acquired absence of both cervix and uterus; Z87.891 Personal history of nicotine dependence; Z79.82 Long term (current) use of aspirin; Z79.2 Long term (current) use of antibiotics; Z79.899 Other long term (current) drug therapy

== ENCOUNTER 2023-10-25 17:07 | Emergency (ER) | payer MEDICARE, MEDICAID ==
[~2023-10-25] VITALS: Ht 157.5 cm; Wt 87.9 kg
[~2023-10-25 17:07] MED LIST changes: +CIPR0.3S67 OP
[2023-10-25 19:08] LABS: Basophils # (auto) 0.1 10 ^3/uL (0-0.2); Basophils % (auto) 1.1 % (0.0-2.0); Eosinophils # (auto) 0.9 10 ^3/uL (0-0.8); Eosinophils % (auto) 13.6 % (0.0-7.0); Hematocrit 43.9 % (36.0-46.0); Hemoglobin 14.6 g/dL (12.2-16.2); Lymphocytes # (auto) 2.1 10 ^3/uL (0.4-5.4); Mean Corpuscular Hgb Conc. 33.3 g/dL (32.0-36.0); Mean Corpuscular Volume 92.9 fL (80.0-100.0); Monocytes # (auto) 0.6 10 ^3/uL (0-1.3); Monocytes % (auto) 9.7 % (0.0-12.0); Neutrophils # (auto) 2.6 10 ^3/uL (1.6-8.6); Neutrophils % (auto) 41.6 % (37.0-80.0); Nucleated Red Blood Cells % 0.1 %; Red Blood Cells 4.72 10^6/uL (4.0-5.20); Red Cell Distribution Width 13.5 % (11.8-14.3); White Blood Cell 6.3 10^3/uL (4.4-10.8)
[2023-10-25 19:21] LABS: Chloride 106 mmol/L (98-107); Sodium 139 mmol/L (136-145)
[2023-10-25 19:22] LABS: Anion Gap 6 (5-15); Calcium 9.4 mg/dL (8.5-10.1); Carbon Dioxide 27 mmol/L (20-30)
[2023-10-25 19:27] LABS: BUN/Creatinine Ratio 12.8 (10.0-20.0); Blood Urea Nitrogen 10 mg/dL (9-23); Glucose 100 mg/dL (74-106)
[2023-10-25 22:36] VITALS: BP 154/91; PULSE 102; RESP 18; TEMP 98.2; O2SAT 93
[2023-10-25] MEDS ORDERED: CYCL-837 PO (23:08)
[2023-10-25] MEDS: KETOROLAC TROMETH 60MG/2ML VIAL IM ONE (23:15)
== END 2023-10-25 23:09 | disposition home or self-care (01) ==
LOC: ER 17:07
DX: G56.91 Unspecified mononeuropathy of right upper limb (principal); M79.601 Pain in right arm; J44.9 Chronic obstructive pulmonary disease, unspecified; I10 Essential (primary) hypertension; Z87.891 Personal history of nicotine dependence; Z90.710 Acquired absence of both cervix and uterus; Z86.73 Personal history of transient ischemic attack (TIA), and cerebral infarction without residual deficits
CPT/HCPCS: 36415; 80048; 85025; 93005; 93971; 96372; 99285; J1885

== ENCOUNTER 2024-08-29 11:06 | Inpatient (IN) | payer MEDICAID, MEDICARE ==
[~2024-08-29] VITALS: Ht 154.9 cm; Wt 85.0 kg
[~2024-08-29 11:06] MED LIST changes: +CYCL-837 PO
--- NOTE | 2024-08-29 11:36 | ED.PDOC ---
SOB-HPI HPI Comments 69 year old female presents to the ED with chief complaint of SOB. Patient reports that she has been experiencing SOB with associated cough and chest pain after coughing for the past 2 weeks. Patient denies any hemoptysis, fever, chills, dizziness, headache, or N/V. Time Seen by MD: 11:34 Primary Care Provider: ZUHAIR Reviewed notes: Nurses Notes, Medications, Allergies Information Source: Patient Mode of Arrival: Ambulatory Severity: Moderate Timing: Weeks Duration: Since onset Context: At Rest PE Risk Factors: None History of: Asthma Prehospital treatment: None Modifying Factors: Nothing Associated Signs and Symptoms: Cough, Chest Pain Quality: Aching Radiation: No Radiation Location: Substernal If cough with SOB: Non-Productive Past Medical History PAST MEDICAL HISTORY: Arthritis, Asthma, CHF, COPD, CVA, HTN Surgical History: Cholecystectomy, Hysterectomy Surgical History (Other): Eye surgery, left wrist surgery, left knee surgery CHILD ADVOCATE History: Denies all CHILD ADVOCATE Hx Family History Family History: Unknown Social History Smoker: Quit Greater Than 1 Year Alcohol: Denies ETOH Use Drugs: Denies Drug Use Lives In: Home Constitutional: denies: chills, diaphoresis, fatigue, fever, malaise, sweats, weakness, others EENTM: denies: blurred vision, double vision, ear bleeding, ear discharge, ear drainage, ear pain, ear ringing, eye pain, eye redness, hearing loss, mouth pain, mouth swelling, nasal discharge, nose bleeding, nose congestion, nose pain, photophobia, tearing, throat pain, throat swelling, voice changes, others Respiratory: reports: cough, shortness of breath; denies: hemoptysis, orthopnea, SOB at rest, SOB with excertion, stridor, wheezing, others Cardiovascular: reports: chest pain; denies: dizzy spells, diaphoresis, Dyspnea on exertion, edema, irregular heart beat, left arm pain, lightheadedness, palpitations, PND, syncope, others Gastrointestinal: denies: abdomen distended, abdominal pain, blood streaked bowels, constipated, diarrhea, dysphagia, difficulty swallowing, hematemesis, melena, nausea, poor appetite, poor fluid intake, rectal bleeding, rectal pain, vomiting, others Genitourinary: denies: abnormal vagina bleeding, burning, dyspareunia, dysuria, flank pain, frequency, hematuria, incontinence, pain, , vagina discharge, urgency, others Neurological: denies: dizziness, fainting, headache, left sided numbness, left sided weakness, numbness, paresthesia, pre-existing deficit, right sided num bness, right sided weakness, seizure, speech problems, tingling, tremors, weakness, others Musculoskeletal: denies: back pain, gout, joint pain, joint swelling, muscle pain, muscle stiffness, neck pain, others Integumetry: denies: bruises, change in color, change in hair/nails, dryness, laceration, lesions, lumps, rash, wounds, others Allergic/Immunocompromised: denies: Difficulty Healing, Frequent Infections, Hives, Itching, others Hematologic/Lymphatic: denies: anemia, blood clots, easy bleeding, easy bruising, swollen glands, others Endocrine: denies: excessive hunger, excessive sweating, excessive thirst, excessive urination, flushing, intolerance to cold, intolerance to heat, unexplained weight gain, unexplained weight loss, others Psychiatric: denies: anxiety, bipolar disorder, depression, hopeless, panic disorder, schizophrenia, sleepless, suicidal, others All Other Systems: Reviewed and Negative Physical Exam General Appearance: Moderate Distress, Normal HEENT: Normal ENT Inspection, PERRL/EOMI Neck: Full Range of Motion, Non-Tender, Normal, Normal Inspection Respiratory: Chest Non-Tender, No Accessory Muscle Use, Wheezing Cardiovascular: No Edema, No JVD, No Murmur, No Gallop, Normal Peripheral Pulses, Regular Rate/Rhythm Breast Exam: Deferred Gastrointestinal: No Organomegaly, Non Tender, No Pulsatile Mass, Normal Bowel Sounds, Soft Genitalia: Deferred Pelvic: Deferred Rectal: Deferred Extremities: No calf tenderness, Normal capillary refill, Normal inspection, Normal range of motion, Non-tender, No pedal edema Musculoskeletal : Apperance: Normal Neurologic: Alert, per diem registered nurse II-XII nml as Tested, No Motor Deficits, Normal Affect, Normal Mood, No Sensory Deficits Cerebellar Function: Normal Reflexes: Normal Skin: Dry, Normal Color, Warm Peripheral Pulses: 3+ Radial (R), 3+ Radial (L) Lymphatic: No Adenopathy Was a procedure done? Was a procedure done?: No Differential Dx Differential Diagnosis: Anxiety, Asthma, Bronchitis, CHF, COPD X-Ray, Labs, Meds, VS Vital Signs Date Time Temp Pulse Resp B/P (MAP) Pulse Ox O2 Delivery O2 Flow Rate FiO2 08/29/24 13:11 16 91 Room Air* 0 21 08/29/24 11:42 88 08/29/24 11:20 98.3 97 18 144/90 (108) 93 98.3 Current Medications Medications (Trade) Dose Ordered Sig/Matthew Route Start Time Stop Time Status Last Admin Albuterol (Ventolin Medneb) 5 mg ONCE ONCE NEB 08/29/24 13:00 08/29/24 13:01 DC 08/29/24 13:11 Ipratropium [place] (Atrovent Medneb) 0.5 mg ONCE ONCE NEB 08/29/24 13:00 08/29/24 13:01 DC 08/29/24 13:11 Patient alert. Complaining of shortness a breath causing pain in the chest. Unable to take deep breaths. Vitals stable. Answering questions. Possible asthma exacerbation. Establish intravenous access. Was given steroid. Was given breathing treatment. Echocardiogram. Reviewed her history. Explained to the patient. Continue to monitor. Chest x-ray reviewed does not show any acute changes. Chest XR: FINDINGS: Lines and tubes: None Cardiomediastinal silhouette: normal Pulmonary vasculature: normal Lung expansion: normal Lung airspace: normal Lung interstitium: normal Pleura: normal Pneumothorax: no Bones: Unremarkable Other: no IMPRESSION: No acute intrathoracic abnormality. Time of 1ST Reevaluation: 12:34 Reevaluation 1ST: Unchanged Patient Education/Counseling: Diagnosis, Treatment Family Education/Counseling: No Family Present Additional Information Previous visit documents reviewed: 10/25/23 for neuropathy The following tests were ordered, and results were reviewed by me: Additional Information was gathered from interviewing the following independent historians: None I reviewed and agreed with the following test results read by other providers: I discussed treatment and results with medical personnel and: Patient Departure 1 Departure Time of Disposition: 12:19 Impression: Primary Impression: Asthma exacerbation Qualified Codes: J45.41 - Moderate persistent asthma with (acute) exacerbation Additional Impression: Pneumonitis Disposition: ADMITTED INPATIENT Admit to: Med Surg Condition: Guarded Critical Care Note Critical Care Time?: No Stability Stability form required: No Heart Score Heart Score: Heart Score Response (Comments) Value History Slightly Suspicious 0 EKG Normal 0 Age >65 2 Risk Factors >3 or Hx ASHD 2 Troponin Normal limit 0 Total 4 I personally scribed for TERRI MCNAMARA MD ([email or web address]) on 08/29/24 at 11:36. Electronically submitted by Jason Benavides ([email or web address]). I personally scribed for TERRI MCNAMARA MD ([email or web address]) on 08/29/24 at 13:14. Electronically submitted by Jason Benavides ([email or web address]). TERRI MCNAMARA MD Aug 29, 2024 11:36
--- NOTE | 2024-08-29 12:22 | ECG ---
[facility] Test Date: 2024-08-29 Test Time: 11:42:24 Pat Name: ANIVAL CANO Department: ED Room: 0286 Gender: F [employer]: : 1955 Requested By: TERRI MCNAMARA Order Number: [id number] Reading MD: Jose Beltre Measurements Intervals [place] Rate: 88 P: 26 WA: 141 QRS: 24 QRSD: 80 T: 54 QT: 371 QTc: 449 Interpretive Statements Sinus rhythm Abnormal R-wave progression, early transition Electronically Signed On 08-30-2024 22:37:50 PDT by Jose Beltre Please click the below link to view image of tracing.
[2024-08-29] MEDS: IPRATROPIUM BROM 0.5 MG/2.5ML INH SOL NEB ONE (13:11)
[2024-08-29] MEDS: ALBUTEROL SULF 2.5 MG/0.5ML(0.5%) NEB SOLN NEB ONE (13:11)
--- NOTE | 2024-08-29 13:12 | DVH ---
XY CHEST PORTABLE, HISTORY: sob COMPARISON: XY CHEST PORTABLE on DOS: 05/13/23, XY CHEST PORTABLE on DOS: 03/24/23, XY CHEST XRAY 1 V IEW on DOS: 01/28/23 XY CHEST PORTABLE on DOS: 05/13/23, XY CHEST PORTABLE on DOS: 03/24/23, XY CHEST XRAY 1 VIEW on DOS: 01/28/23 TECHNICAL DATA: 1 view of the chest was obtained. FINDINGS: Lines and tubes: None Cardiomediastinal silhouette: normal Pulmonary vasculature: normal Lung expansion: normal Lung airspace: normal Lung interstitium: normal Pleura: normal Pneumothorax: no Bones: Unremarkable Other: no IMPRESSION: No acute intrathoracic abnormality.
[2024-08-29 13:56] LABS: Basophils # (auto) 0.1 10 ^3/uL (0-0.2); Basophils % (auto) 1.5 % (0.0-2.0); Eosinophils # (auto) 0.9 10 ^3/uL (0-0.8); Hematocrit 46.1 % (36.0-46.0); Hemoglobin 16.1 g/dL (12.2-16.2); Lymphocytes # (auto) 2.4 10 ^3/uL (0.4-5.4); Lymphocytes % (auto) 33.1 % (10.0-50.0); Mean Corpuscular Hemoglobin 32.6 pg (28.0-32.0); Mean Corpuscular Hgb Conc. 34.9 g/dL (32.0-36.0); Mean Corpuscular Volume 93.4 fL (80.0-100.0); Monocytes # (auto) 0.5 10 ^3/uL (0-1.3); Monocytes % (auto) 7.4 % (0.0-12.0); Neutrophils # (auto) 3.4 10 ^3/uL (1.6-8.6); Nucleated Red Blood Cells % 0.1 %; Platelet Count (auto) 205 10^3/uL (140-450); Red Blood Cells 4.93 10^6/uL (4.0-5.20); Red Cell Distribution Width 12.6 % (11.8-14.3); White Blood Cell 7.4 10^3/uL (4.4-10.8)
[2024-08-29 14:09] LABS: Chloride 103 mmol/L (98-107); Potassium 4.7 mmol/L (3.5-5.1); Sodium 141 mmol/L (136-145)
[2024-08-29 14:10] LABS: Anion Gap 6 (5-15); Calcium 9.9 mg/dL (8.7-10.4)
[2024-08-29 14:15] LABS: BUN/Creatinine Ratio 17.3 (10.0-20.0); Blood Urea Nitrogen 14 mg/dL (9-23)
[2024-08-29 14:18] LABS: Carbon Dioxide 32 mmol/L (20-31); Glucose 170 mg/dL (74-106)
[2024-08-29] MEDS: methylPREDNISolone SOD SUCC 125 MG/2 ML VL IV ONE (15:10)
[2024-08-29] MEDS ORDERED: ONDANSETRON HCL 4 MG/2 ML VIAL IV PRN (18:45)
[2024-08-29 19:24] VITALS: BP 117/67; RESP 16; O2SAT 96
--- NOTE | 2024-08-29 20:41 | DVHHP2 ---
History of Present Illness Reason for Visit: Shortness for breath History of Present Illness 69-year-old female presents for evaluation of shortness for breath. Patient with a history of congestive heart failure and COPD reports a one-week history of worsening shortness for breath with associated nonproductive cough. Denies c hills. No swelling her legs. No chest pain. Past Medical History COPD, CVA, hypertension, CHF,, arthritis Past Surgical History Hysterectomy cholecystectomy left knee surgery, wrist surgery Family History Noncontributory Smoke: Quit ALCOHOL: none Drugs: None Lives: with Family Review of Systems Review of Systems Review of systems are currently otherwise addressed in HPI. Allergies: Coded Allergies: NO KNOWN ALLERGIES (Unverified , 01/28/23) Medications Current Medications Medications Dose Ordered Sig/Matthew Route Start Time Stop Time Status Last Admin Dose Admin Albuterol 2.5 mg Q6HPRN PRN NEB 08/29/24 18:45 Ipratropium [place] 0.5 mg Q6HPRN PRN NEB 08/29/24 18:45 Methylprednisolone Sodium Succinate 40 mg BID IV 08/29/24 22:00 Ondansetron HCl 4 mg Q4HP PRN IV 08/29/24 18:45 Enoxaparin Sodium 40 mg DAILY SC 08/30/24 10:00 Acetaminophen 650 mg Q6HP PRN PO 08/29/24 18:45 Hydrochlorothiazide 12.5 mg DAILY PO 08/30/24 10:00 Atorvastatin Calcium 20 mg HS PO 08/29/24 22:00 Exam Vital Signs Vital Signs Date Time Temp Pulse Resp B/P (MAP) Pulse Ox O2 Delivery O2 Flow Rate FiO2 08/29/24 19:24 16 117/67 96 0.0 21 08/29/24 15:08 Room Air* 08/29/24 15:07 97.5 102 97.5 Exam Gen: 69-year-old female mild distress Skin: Warm, dry, normal color and texture, no rash. HEENT: Normocephalic atraumatic, mucous membranes moist and pink. Neck: Cervical and supraclavicular nodes normal without enlargement, trachea is midline, thyroid gland is normal without masses. Pulmonary: Bilateral rhonchi Cardiac: Regular rate and rhythm. No murmur Abdomen: Soft, nontender, nondistended, bowel sounds present all 4 quadrants, no guarding, no rigidity, no organomegaly. Extremities: No cyanosis, clubbing, no edema Neuro: Cranial nerves II through XII grossly intact, normal affect and speech, no focal motor deficits. Labs/Xrays ORDERING PHYSICIAN: TERRI MCNAMARA MD PROCEDURE(s): CXRP - CHEST PORTABLE REASON: sob ORDER NUMBER(s): [id number], ACCESSION NUMBER(s): [id number] XY CHEST PORTABLE, HISTORY: sob COMPARISON: XY CHEST PORTABLE on DOS: 05/13/23, XY CHEST PORTABLE on DOS: 03/24/23, XY CHEST XRAY 1 VIEW on DOS: 01/28/23 XY CHEST PORTABLE on DOS: 05/13/23, XY CHEST PORTABLE on DOS: 03/24/23, XY CHEST XRAY 1 VIEW on DOS: 01/28/23 TECHNICAL DATA: 1 view of the chest was obtained. FINDINGS: Lines and tubes: None Cardiomediastinal silhouette: normal Pulmonary vasculature: normal Lung expansion: normal Lung airspace: normal Lung interstitium: normal Pleura: normal Pneumothorax: no Bones: Unremarkable Other: no IMPRESSION: No acute intrathoracic abnormality. ATED BY: AASHISH MIN MD DICTATED DATE/TIME: 08/29/24 1310 Labs Test 08/29/24 15:05 08/29/24 13:31 Range/Units Troponin I High Sensitivity < 3 L </=34 ng/L White Blood Count 7.4 4.4-10.8 10^3/uL Red Blood Count 4.93 4.0-5.20 10^6/uL Hemoglobin 16.1 12.2-16.2 g/dL Hematocrit 46.1 H 36.0-46.0 % Mean Corpuscular Volume 93.4 80.0-100.0 fL Mean Corpuscular Hemoglobin 32.6 H 28.0-32.0 pg Mean Corpuscular Hemoglobin Concent 34.9 32.0-36.0 g/dL Red Cell Distribution Width 12.6 11.8-14.3 % Platelet Count 205 140-450 10^3/uL Mean Platelet Volume 9.3 6.9-10.8 fL Neutrophils (%) (Auto) 46.0 37.0-80.0 % Lymphocytes (%) (Auto) 33.1 10.0-50.0 % Monocytes (%) (Auto) 7.4 0.0-12.0 % Eosinophils (%) (Auto) 12.0 H 0.0-7.0 % Basophils (%) (Auto) 1.5 0.0-2.0 % Neutrophils # (Auto) 3.4 1.6-8.6 10 ^3/uL Lymphocytes # (Auto) 2.4 0.4-5.4 10 ^3/uL Monocytes # (Auto) 0.5 0-1.3 10 ^3/uL Eosinophils # (Auto) 0.9 H 0-0.8 10 ^3/uL Basophils # (Auto) 0.1 0-0.2 10 ^3/uL Nucleated Red Blood Cells 0.1 % Sodium Level 141 136-145 mmol/L Potassium Level 4.7 3.5-5.1 mmol/L Chloride Level 103 98-107 mmol/L Carbon Dioxide Level 32 H 20-31 mmol/L Anion Gap 6 5-15 Blood Urea Nitrogen 14 9-23 mg/dL Creatinine 0.81 0.550-1.02 mg/dL Glomerular Filtration Rate Calc 78 >90 mL/min BUN/Creatinine Ratio 17.3 10.0-20.0 Serum Glucose 170 H 74-106 mg/dL Calcium Level 9.9 8.7-10.4 mg/dL Assessment/Plan Assessment/Plan Assessment Acute on chronic respiratory failure Hypertension Possible pneumonitis CHF COPD exacerbation Plan Admit the patient to Med surge to the hospitalist Med denise Azithromycin Resume home medications Continue treatment per orders. Plan discussed with: Patient My Orders Orders - MELIDA MOSCOSO AGACNP Procedure Category Date Status Time Albuterol Medneb PHA 08/29/24 In Process (Ventolin Medneb) 18:45 Ipratropium Medneb PHA 08/29/24 In Process (Atrovent Medneb) 18:45 Methylprednisolone PHA 08/29/24 In Process Sod Succ (Solu Medrol 22:00 Admit ADMIT 08/29/24 Transmitted 18:38 Ondansetron Hcl PHA 08/29/24 In Process (Zofran) 18:45 Enoxaparin Sodium PHA 08/30/24 In Process (Lovenox) 10:00 Complete Blood Count LAB 08/30/24 Verified 04:00 Cardiac DIET 08/30/24 Transmitted Diet-2gna,Lofat,Lochol Breakfast Condition: Stable KATHIA 08/29/24 In Process 18:38 Acetaminophen Tablet PHA 08/29/24 In Process (Tylenol Tablet) 18:45 Bedrest With Bathroom KATHIA 08/29/24 In Process Privileg 18:38 Basic Metabolic Panel LAB 08/30/24 Verified 04:00 Hydrochlorothiazide PHA 08/30/24 In Process Tablet (Hydrochlorot 10:00 Atorvastatin (Lipitor) PHA 08/29/24 In Process 22:00 Guaifenesin-Dextromet PHA 08/29/24 Verified Liquid (Robitussin 20:45 Date of Service: Aug 29, 2024 Billing Provider: MELIDA MOSCOSO Common Visit Codes: [id number] INP/OBS CARE (HIGH) MELIDA MOSCOSO Aug 29, 2024 20:41
[2024-08-29 22:28] VITALS: BP 122/68; PULSE 111; RESP 18; TEMP 99.3; O2SAT 91
[2024-08-29 22:32] VITALS: PULSE 102; RESP 92; O2SAT 92
[2024-08-29] MEDS: ACETAMINOPHEN 325 MG TAB PO PRN (23:04)
[2024-08-29] MEDS: methylPREDNISolone SOD SUCC 40 MG/ML VL IV SCH (23:05)
[2024-08-29] MEDS: ATORVASTATIN 20 MG TAB PO SCH (23:05)
[2024-08-29] MEDS: AZITHROMYCIN 500MG/ 250ML 250 ML IV ONE (23:19)
[2024-08-30] VITALS (15 sets, daily range): BP systolic 106–134; BP diastolic 53–72; PULSE 89–110; RESP 16–20; TEMP 98–98.9; O2SAT 90–98
[2024-08-30] MEDS: IPRATROPIUM BROM 0.5 MG/2.5ML INH SOL NEB PRN (04:47)
[2024-08-30] MEDS: ALBUTEROL SULF 2.5 MG/0.5ML(0.5%) NEB SOLN NEB PRN (04:47)
[2024-08-30 06:23] LABS: Basophils # (auto) 0 10 ^3/uL (0-0.2); Basophils % (auto) 0.2 % (0.0-2.0); Eosinophils # (auto) 0 10 ^3/uL (0-0.8); Hematocrit 42.8 % (36.0-46.0); Hemoglobin 15.1 g/dL (12.2-16.2); Lymphocytes # (auto) 1.1 10 ^3/uL (0.4-5.4); Lymphocytes % (auto) 8.7 % (10.0-50.0); Mean Corpuscular Hemoglobin 32.8 pg (28.0-32.0); Mean Corpuscular Hgb Conc. 35.4 g/dL (32.0-36.0); Mean Corpuscular Volume 92.7 fL (80.0-100.0); Monocytes # (auto) 0.2 10 ^3/uL (0-1.3); Monocytes % (auto) 1.4 % (0.0-12.0); Neutrophils # (auto) 11.1 10 ^3/uL (1.6-8.6); Neutrophils % (auto) 89.7 % (37.0-80.0); Platelet Count (auto) 190 10^3/uL (140-450); Red Blood Cells 4.62 10^6/uL (4.0-5.20); Red Cell Distribution Width 12.6 % (11.8-14.3); White Blood Cell 12.4 10^3/uL (4.4-10.8)
[2024-08-30 06:31] LABS: Chloride 105 mmol/L (98-107); Potassium 4.3 mmol/L (3.5-5.1); Sodium 139 mmol/L (136-145)
[2024-08-30 06:32] LABS: Anion Gap 10 (5-15); Carbon Dioxide 24 mmol/L (20-31)
[2024-08-30 06:33] LABS: Calcium 9.7 mg/dL (8.7-10.4)
[2024-08-30 06:38] LABS: BUN/Creatinine Ratio 21.8 (10.0-20.0); Blood Urea Nitrogen 19 mg/dL (9-23)
[2024-08-30 06:48] LABS: Glucose 187 mg/dL (74-106)
[2024-08-30] MEDS: AZITHROMYCIN 500MG/ 250ML 250 ML IV SCH (09:45)
[2024-08-30] MEDS: hydroCHLOROthiazide 25 MG TAB PO SCH (09:46)
[2024-08-30] MEDS: ENOXAPARIN SOD 40 MG/0.4 ML SYRINGE SC SCH (09:49)
[2024-08-30 12:24] LABS: Albumin 4.4 g/dL (3.2-4.8); Bilirubin, Direct 0.1 mg/dL (<0.3); Bilirubin, Total 0.5 mg/dL (0.2-1.0); Magnesium 2.2 mg/dL (1.6-2.6)
[2024-08-30] MEDS: IPRATROPIUM BROM 0.5 MG/2.5ML INH SOL NEB SCH (13:50)
[2024-08-30] MEDS: ALBUTEROL SULF 2.5 MG/0.5ML(0.5%) NEB SOLN NEB SCH (13:51)
[2024-08-30] MEDS: guaiFENesin-DM 100/10mg/5ml SYR PO PRN (13:58)
[2024-08-30 14:07] LABS: INR 1.16 (0.9-1.15); Partial Thromboplastin Time 27.6 SEC (24.5-34.5); Prothrombin Time 12.1 sec (9.3-11.8)
[2024-08-30] MEDS ORDERED: HYDROcodone-ACET 5/325MG TAB PO PRN (16:00)
--- NOTE | 2024-08-30 16:00 | DVHPNRES ---
Progress Note Date Seen: Aug 30, 2024 Resident Creating Document: TRUE MILLAN RESIDENT Medical Necessity Reason Pt with a Central, PICC or Fol: No Subjective Review of Systems This is a 69-year-old patient with past medical history of CVA, COPD and asthma, former smoker, history of left thyroid nodule who presented to the ER with complaining of shortness of breaths for the past 4 weeks with productive cough. She reports that 4 weeks back she started to get fever and chills and her shortness of breaths has been gradually increasing, along with a cough which she says she has had from childhood but now it is productive with green phlegm. She takes ipratropium inhaler which did not help her. She denies taking any other inhaler for her asthma hour COPD. Reports pleuritic chest pain and cough on deep inspiration. Denies any nausea or vomiting. On arrival, patient low-grade fever 99.3, tachycardia unknown to, CBC and CMP were unremarkable. Last echocardiogram showed 55% ejection fraction in May 2023 Medical history: See above Home medications, aspirin, pravastatin, albuterol, ipratropium inhaler, pantoprazole 40 mg Patient seen and examined at the bedside. Patient has bilateral expiratory wheezing and cough. Objective vital signs Vital Sign Date Time Temp Pulse Resp B/P (MAP) Pulse Ox O2 Delivery O2 Flow Rate FiO2 08/30/24 13:59 98.6 08/30/24 13:57 109 16 98 08/30/24 13:51 Room Air 0.0 08/30/24 13:51 21 08/30/24 12:36 118/69 (85) Total Intake and Output 08/29/24 08/29/24 08/30/24 15:00 23:00 07:00 Intake Total 100 ml Output Total 0 ml Balance 100 ml medications Current Medications Medications Dose Ordered Sig/Matthew Route Start Time Stop Time Status Last Admin Dose Admin Ipratropium [place] 0.5 mg Q6HPRN PRN NEB 08/29/24 18:45 08/30/24 04:47 0.5 MG Methylprednisolone Sodium Succinate 40 mg BID IV 08/29/24 22:00 08/30/24 09:46 40 MG Ondansetron HCl 4 mg Q4HP PRN IV 08/29/24 18:45 Enoxaparin Sodium 40 mg DAILY SC 08/30/24 10:00 Acetaminophen 650 mg Q6HP PRN PO 08/29/24 18:45 08/30/24 13:59 650 MG Hydrochlorothiazide 12.5 mg DAILY PO 08/30/24 10:00 08/30/24 09:46 12.5 MG Atorvastatin Calcium 20 mg HS PO 08/29/24 22:00 08/29/24 23:05 20 MG Guaifenesin/ Dextromethorphan 10 ml Q4HP PRN PO 08/29/24 20:45 08/30/24 13:58 10 ML Azithromycin 250 ml @ 125 mls/hr DAILY IV 08/30/24 10:00 08/30/24 09:45 125 MLS/HR Ipratropium [place] 0.5 mg Q4HR NEB 08/30/24 14:00 08/30/24 13:50 0.5 MG Albuterol 2.5 mg Q4HR NEB 08/30/24 14:00 08/30/24 13:51 2.5 MG Cholecalciferol 1,000 unit DAILY PO 08/31/24 10:00 UNV Examination Patient lying in bed, in no acute distress General: Well-built, afebrile, palor, mucosae are moist Cardiovascular: Regular S1 and S2. No murmurs, gallops or rubs. No JVD elevation. Bilateral 1+ pitting edema. Respiratory: Bilateral wheezing heard on expiration. Decreased bilateral breath sounds. Abdomen: Soft, nontender, nondistended, normoactive bowel sounds, no rebound tenderness, no organomegaly, no masses Genitourinary: Deferred MSK/skin: Mobilizes 4 limbs. Skin is dry and warm Neurological: No motor, no sensitive deficits, normal speech. Pupils are isocoric and reactive. Psych/Mental Status: A/Ox3 laboratory and microbiology Laboratory Tests 08/30/24 06:00 Test 08/30/24 06:00 Range/Units Serum Glucose 187 H 74-106 mg/dL Labs and/or images reviewed: Labs reviewed by me, Image(s) reviewed by me Problem List/Assessment/Plan Problem List/Assessment/Plan Community-acquired pneumonia, Gram-positive and negative Suspected acute asthma exacerbation Lymphocytosis steroid induced likely Continue ipratropium and albuterol nebulized treatment Continue IV azithromycin starting 08/29, started ceftriaxone 1 g IV daily MRSA nares pending Methylprednisolone 40 mg IV b.i.d. starting 08/29 Respiratory culture ordered History of CVA Continue aspirin and atorvastatin Vitamin-D deficiency Supplemented Obesity Counseled regarding lifestyle measures Plan discussed patient in which all questions have been answered Goals of care discussed for more than 20 minutes, full code status Case discussed with Dr. De Guzman Plan discussed with: Patient My Orders My Orders Orders - TRUE MILLAN Procedure Category Date Status Time Drug Screen LAB 08/30/24 Logged 11:43 Urinalysis LAB 08/30/24 Logged 11:43 Mrsa Screen KAREN 08/30/24 Uncollected 11:43 Rapid Influenza A&B LAB 08/30/24 Logged 11:43 Covid19 Antigen Sue LAB 08/30/24 Logged Ipratropium Medneb PHA 08/30/24 In Process (Atrovent Medneb) 14:00 Albuterol Medneb PHA 08/30/24 In Process (Ventolin Medneb) 14:00 Date of Service: Aug 30, 2024 Billing Provider: DOT DE GUZMAN DO Common Visit Codes: [id number] INP/OBS CARE(HIGH) TRUE MILLAN Aug 30, 2024 16:00 DOT DE GUZMAN DO Sep 03, 2024 19:16
[2024-08-30] MEDS ORDERED: MAGNESIUM SULFATE 1GM/100ML 100 ML IV ONE (16:15)
[2024-08-30] MEDS: PANTOPRAZOLE 40 MG/10 ML VIAL INJ IV ONE (17:03)
[2024-08-30] MEDS: MAGNESIUM SULFATE 1GM/100ML 100 ML IV ONE (17:25)
[2024-08-30] MEDS: cefTRIAXone 1GM/50ML D5W 50 ML IV ONE (18:00)
[2024-08-30 18:17] LABS: COVID19 ANTIGEN SOFIA FIA NEGATIVE (NEGATIVE); Rapid Influenza A Negative (Negative); Rapid Influenza B Negative (Negative)
[2024-08-30] MEDS: ACETAMINOPHEN 500 MG TAB or CAP PO PRN (21:48)
[2024-08-31] VITALS (14 sets, daily range): BP systolic 96–123; BP diastolic 45–66; PULSE 61–95; RESP 16–18; TEMP 36.9; O2SAT 90–100
[2024-08-31 06:44] LABS: Basophils # (auto) 0 10 ^3/uL (0-0.2); Basophils % (auto) 0.1 % (0.0-2.0); Eosinophils # (auto) 0 10 ^3/uL (0-0.8); Hematocrit 42.9 % (36.0-46.0); Hemoglobin 14.6 g/dL (12.2-16.2); Lymphocytes # (auto) 0.7 10 ^3/uL (0.4-5.4); Lymphocytes % (auto) 4.4 % (10.0-50.0); Mean Corpuscular Hgb Conc. 33.9 g/dL (32.0-36.0); Mean Corpuscular Volume 94.3 fL (80.0-100.0); Monocytes # (auto) 0.4 10 ^3/uL (0-1.3); Monocytes % (auto) 2.6 % (0.0-12.0); Neutrophils # (auto) 15.1 10 ^3/uL (1.6-8.6); Neutrophils % (auto) 92.9 % (37.0-80.0); Platelet Count (auto) 194 10^3/uL (140-450); Red Blood Cells 4.55 10^6/uL (4.0-5.20); Red Cell Distribution Width 12.6 % (11.8-14.3); White Blood Cell 16.2 10^3/uL (4.4-10.8)
[2024-08-31 06:49] LABS: Anion Gap 9 (5-15); Carbon Dioxide 25 mmol/L (20-31); Chloride 105 mmol/L (98-107); Potassium 4.5 mmol/L (3.5-5.1); Sodium 139 mmol/L (136-145)
[2024-08-31 06:50] LABS: Calcium 9.8 mg/dL (8.7-10.4)
[2024-08-31 06:56] LABS: BUN/Creatinine Ratio 21.4 (10.0-20.0); Blood Urea Nitrogen 15 mg/dL (9-23); Magnesium 2.3 mg/dL (1.6-2.6)
[2024-08-31 07:04] LABS: Glucose 198 mg/dL (74-106)
[2024-08-31] MEDS: ERGOCALCIFEROL 50,000 UNIT(1.25MG) CAP PO SCH (08:15)
[2024-08-31 09:01] LABS: T3 Total 0.93 ng/mL (0.60-1.81)
[2024-08-31 09:02] LABS: Free T4 (Free Thyroxine) 1.08 ng/dL (0.89-1.76)
[2024-08-31] MEDS ORDERED: CHOL500021 OR (09:38)
[2024-08-31] MEDS ORDERED: FLUT1AER3 IN (09:38)
[2024-08-31] MEDS ORDERED: LEVO750T40 PO (09:38)
[2024-08-31] MEDS ORDERED: CHOLECALCIFEROL (VITD3) 1,000UNIT=25mCg TAB PO SCH (10:00)
--- NOTE | 2024-08-31 10:12 | DVHDSRES ---
Discharge Summary Date of Admission Resident Creating Document: TRUE MILLAN RESIDENT Aug 29, 2024 at 18:38 Date of Discharge: Aug 31, 2024 Labs/Diagnostic Data: Laboratory Results Test 08/31/24 05:15 08/30/24 16:20 08/30/24 13:27 08/30/24 06:00 White Blood Count 16.2 10^3/uL (4.4-10.8) Red Blood Count 4.55 10^6/uL (4.0-5.20) Hemoglobin 14.6 g/dL (12.2-16.2) Hematocrit 42.9 % (36.0-46.0) Mean Corpuscular Volume 94.3 fL (80.0-100.0) Mean Corpuscular Hemoglobin 32.0 pg (28.0-32.0) Mean Corpuscular Hemoglobin Concent 33.9 g/dL (32.0-36.0) Red Cell Distribution Width 12.6 % (11.8-14.3) Platelet Count 194 10^3/uL (140-450) Mean Platelet Volume 9.5 fL (6.9-10.8) Neutrophils (%) (Auto) 92.9 % (37.0-80.0) Lymphocytes (%) (Auto) 4.4 % (10.0-50.0) Monocytes (%) (Auto) 2.6 % (0.0-12.0) Eosinophils (%) (Auto) 0.0 % (0.0-7.0) Basophils (%) (Auto) 0.1 % (0.0-2.0) Neutrophils # (Auto) 15.1 10 ^3/uL (1.6-8.6) Lymphocytes # (Auto) 0.7 10 ^3/uL (0.4-5.4) Monocytes # (Auto) 0.4 10 ^3/uL (0-1.3) Eosinophils # (Auto) 0 10 ^3/uL (0-0.8) Basophils # (Auto) 0 10 ^3/uL (0-0.2) Nucleated Red Blood Cells 0.0 % Sodium Level 139 mmol/L (136-145) Potassium Level 4.5 mmol/L (3.5-5.1) Chloride Level 105 mmol/L (98-107) Carbon Dioxide Level 25 mmol/L (20-31) Anion Gap 9 (5-15) Blood Urea Nitrogen 15 mg/dL (9-23) Creatinine 0.70 mg/dL (0.550-1.02) Glomerular Filtration Rate Calc 93 mL/min (>90) BUN/Creatinine Ratio 21.4 (10.0-20.0) Serum Glucose 198 mg/dL (74-106) Calcium Level 9.8 mg/dL (8.7-10.4) Magnesium Level 2.3 mg/dL (1.6-2.6) Free Thyroxine (T4) Calculated 1.08 ng/dL (0.89-1.76) Total Triiodothyronine (TT3) 0.93 ng/mL (0.60-1.81) Influenza Type A Antigen Negative (Negative) Influenza Type B Antigen Negative (Negative) SARS-CoV-2 Antigen (Rapid) Negative (NEGATIVE) Prothrombin Time 12.1 sec (9.3-11.8) Prothrombin Time INR 1.16 (0.9-1.15) Activated Partial Thromboplast Time 27.6 SEC (24.5-34.5) Hemoglobin A1c 5.4 % A1C (<5.7) Total Bilirubin 0.5 mg/dL (0.2-1.0) Direct Bilirubin 0.1 mg/dL (<0.3) Aspartate Amino Transferase (AST) 25 U/L (13-40) Alanine Aminotransferase (ALT) 24 U/L (7-40) Alkaline Phosphatase 123 U/L (46-116) B-Type Natriuretic Peptide 51.42 pg/mL (0-100) Total Protein 7.0 g/dL (5.7-8.2) Albumin 4.4 g/dL (3.2-4.8) Vitamin B12 Level 262 pg/mL (211-911) Vitamin D 25-Hydroxy 23.5 ng/mL (30.0-100) Thyroid Stimulating Hormone (TSH) 0.33 uIU/mL (0.55-4.78) Test 08/29/24 15:05 Troponin I High Sensitivity < 3 ng/L (</=34) Other Laboratory Tests 08/31/24 05:15 Brief Hx & Hospital Course: This is a 69-year-old patient with past medical history of CVA, COPD and asthma, former smoker, history of left thyroid nodule who presented to the ER with complaining of shortness of breaths for the past 4 weeks with productive cough. She reports that 4 weeks back she started to get fever and chills and her shortness of breaths has been gradually increasing, along with a cough which she says she has had from childhood but now it is productive with green phlegm. She takes ipratropium inhaler which did not help her. She denies taking any other inhaler for her asthma hour COPD. Reports pleuritic chest pain and cough on deep inspiration. Denies any nausea or vomiting. Medical history: See above Home medications, aspirin, pravastatin, albuterol, ipratropium inhaler, pantoprazole 40 mg Patient seen and examined at the bedside. Patient has bilateral expiratory wheezing and cough. On arrival, patient low-grade fever 99.3, tachycardia unknown to, CBC and CMP were unremarkable. Last echocardiogram showed 55% ejection fraction in May 2023. On examination, the patient had bilateral expiratory wheezing and productive cough. Patient was started on IV azithromycin on 08/29 and IV ceftriaxone on 08/30 given the likelihood of community-acquired pneumonia, received methylprednisolone 40 mg IV b.i.d. started 08/29, IV magnesium, nebulized treatment q.4 hourly for likely asthma exacerbation. Patient reported feeling better next day. We continued aspirin and atorvastatin. 08/31-hemodynamically stable,on room air, wheezing resolved, patient reports feeling better since therefore discharged home on only levofloxacin 750 mg daily for the next 7 days. Renewed Trelegy inhaler. She is advised to follow up with primary care physician as outpatient within 7 days. Discharge diagnosis: Community-acquired pneumonia, Gram-positive and negative Suspected acute asthma exacerbation Lymphocytosis steroid induced likely History of CVA Vitamin-D deficiency Obesity Operations or Procedures ORDERING PHYSICIAN: TERRI MCNAMARA MD PROCEDURE(s): CXRP - CHEST PORTABLE REASON: sob ORDER NUMBER(s): [id number], ACCESSION NUMBER(s): [id number] XY CHEST PORTABLE, HISTORY: sob COMPARISON: XY CHEST PORTABLE on DOS: 05/13/23, XY CHEST PORTABLE on DOS: 03/24/23, XY CHEST XRAY 1 VIEW on DOS: 01/28/23 XY CHEST PORTABLE on DOS: 05/13/23, XY CHEST PORTABLE on DOS: 03/24/23, XY CHEST XRAY 1 VIEW on DOS: 01/28/23 TECHNICAL DATA: 1 view of the chest was obtained. FINDINGS: Lines and tubes: None Cardiomediastinal silhouette: normal Pulmonary vasculature: normal Lung expansion: normal Lung airspace: normal Lung interstitium: normal Pleura: normal Pneumothorax: no Bones: Unremarkable Other: no IMPRESSION: No acute intrathoracic abnormality. ATED BY: AASHISH JUNIOR MD DICTATED DATE/TIME: 08/29/24 1310 SIGNED BY: AASHISH JUNIOR MD SIGNED DATE/TIME: 08/29/24 1310 CC: Condition at Discharge: Stable Final Diagnosis/Problems List Community-acquired pneumonia, Gram-positive and negative Suspected acute asthma exacerbation Lymphocytosis steroid induced likely History of CVA Vitamin-D deficiency Obesity Discharge Disposition: Home Discharge Instruct/Medications Diet: Cardiac 2g Na,low cholest Activity: No Restrictions, As Tolerated Follow Up/Referral: Follow up with primary care physician within 7 days Follow up with the discharge clinic within 7 days Medications: Per EMR Discharge Statement: "Patient was advised to return to the ER or call 911 if any headaches, dizziness, shortness of breath, chest pain, abdominal pain, bleeding, fevers, or worsening of medical condition. Patient was counseled about treatment plan, medications, possible side effects, patientverbalized understanding. All questions were answered to the best of my ability. This discharge took greater then 30 minutes in planning, reviewing documentation, counseling the patient, and discussing with other team members." ASSESSMENT ASSESSMENT Assessment Community-acquired pneumonia, Gram-positive and negative Suspected acute asthma exacerbation Lymphocytosis steroid induced likely Date of Service: Aug 31, 2024 Billing Provider: DOT DEG UZMAN DO Common Visit Codes: 81266-GPN/OBS DISCH DAY >30min TRUE MILLAN RESIDENT Aug 31, 2024 10:11 DOT DE GUZMAN DO Sep 03, 2024 19:16
[2024-08-31] MEDS: PANTOPRAZOLE 40 MG TAB PO SCH (10:26)
[2024-08-31] MEDS: ASPirin-EC 81 mg tab PO SCH (10:27)
[2024-08-31] MEDS: cefTRIAXone 1GM/50ML D5W 50 ML IV SCH (10:27)
== END 2024-08-31 12:35 | disposition home or self-care (01) | DRG 178 ==
LOC: ER 11:06 → OVERFLOW 18:38 → WEST WING 08-30 03:24
PROVIDERS: ADMIT Internal Medicine; ATTEND Internal Medicine
DX: J15.69 Pneumonia due to other Gram-negative bacteria (principal); J44.0 Chronic obstructive pulmonary disease with (acute) lower respiratory infection; J45.901 Unspecified asthma with (acute) exacerbation; J44.1 Chronic obstructive pulmonary disease with (acute) exacerbation; J15.9 Unspecified bacterial pneumonia; D72.820 Lymphocytosis (symptomatic); J98.4 Other disorders of lung; T38.0X5A Adverse effect of glucocorticoids and synthetic analogues, initial encounter; E66.9 Obesity, unspecified; E55.9 Vitamin D deficiency, unspecified; Z90.49 Acquired absence of other specified parts of digestive tract; Z90.710 Acquired absence of both cervix and uterus; Z86.73 Personal history of transient ischemic attack (TIA), and cerebral infarction without residual deficits; Z87.891 Personal history of nicotine dependence; Z68.35 Body mass index [BMI] 35.0-35.9, adult; Z79.82 Long term (current) use of aspirin; Z79.899 Other long term (current) drug therapy; Y92.89 Other specified places as the place of occurrence of the external cause
CPT/HCPCS: 36415; 71045; 80048; 80076; 82306; 82607; 83036; 83735; 83880; 84439; 84443; 84480; 84484; 85025; 85610; 85730; 87081; 87426; 87804; 93005; 94640; 96374; G0378; J2470

== ENCOUNTER 2024-10-13 15:03 | Emergency (ER) | payer MEDICARE ==
[~2024-10-13] VITALS: Ht 154.9 cm; Wt 83.9 kg
[~2024-10-13 15:03] MED LIST changes: -AZIT500T66 PO; +CHOL500021 OR; -CIPR0.3S67 OP; +LEVO750T40 PO; -METH4PAK PO; -OMEP20TA PO
[2024-10-13 15:30] VITALS: BP 117/73; PULSE 104; RESP 16; TEMP 99.2; O2SAT 93
[2024-10-13 16:03] LABS: Urine Bacteria None Seen /hpf (None Seen)
[2024-10-13 16:07] LABS: Urine Blood TRACE /uL (Negative); Urine Clarity Turbid (Clear); Urine Color Yellow (Yellow); Urine Mucus FEW (None Seen); Urine Protein, UAD TRACE (Negative); Urine Squamous Epithelial Cell FEW /hpf (<5); Urine Urobilinogen 2 mg/dL (Negative); Urine WBC 74 /HPF (0-5); Urine pH 5.5 (5.0-9.0)
--- NOTE | 2024-10-13 16:07 | ED.PDOC ---
General HPI Comments 69-year-old female presents with a chief complaint of dysuria and burning with urination. Patient states that she has chronic bladder dribbling, which she has had 2 bladder surgeries for and chronic abdominal pain which she had an endoscopy for 2 weeks ago. Patient mentions that now when she uses the bathroom she has a burning sensation when urinating. Patient mentions that her pain is currently a 10/10 at time of urination however she does not appear to be in much distress. PMHx: HTN, HLD, Asthma, Arthritis, CVA, CHF, COPD PSHx: Hysterectomy, Cholecystectomy, Bladder Sx x2 HPI: Poor Historian. REVIEW OF SYSTEMS: CONSTITUTIONAL: Denies acute: fever, diaphoresis, chills, generalized weakness. HEAD: Denies acute: headache, photophobia Eyes: Denies acute: Double vision, vision loss, eye pain, eye discharge. EARS: Denies acute: tinnitus, hearing loss, ear discharge, ear pain, THROAT: Denies acute: sore throat, swelling, difficulty swallowing , pain with swallowing, change in voice. NECK: Denies acute: neck pain, neck swelling, stiff neck. HEART: Denies acute : chest pain, palpitations, LUNGS: Denies acute: SOB, wheezing, cough, hemoptysis ABDOMEN: Denies acute: abdominal pain, Nausea, Vomiting, diarrhea, melena , hematemesis, hematochezia SKIN: Denies acute: rash, redness, lesions, itchiness. EXTREMITIES: Denies acute: calf pain, numbness, tingling, weakness, denies pain in extremity. Denies acute: Low back pain. Neuro: Denies acute: focal neurological deficit, motor or sensory focal neurological deficit, tremors, seizure like activity, confusion, dizziness, change in mental status, loss of bowel or bladder function, cauda equina like symptoms. : Denies acute: hematuria, flank pain, increase in urinary frequency. PSYCH: Denies acute: hallucination, suicidal ideation, homicidal ideation. FEMALE: Denies acute: abnormal vaginal bleeding, foul odor, unusual discharge. PHYSICAL EXAM: General: ----mild----acute distress, awake and alert. Head: normocephalic, atraumatic. Neck: supple, trachea is midline, no swelling. Throat: Normal phonation. Eyes:, no erythema, no purulent discharge, no proptosis, no icterus. Heart: regular rate, regular rhythm, no significant murmur appreciated. Lungs: no apparent respiratory distress, Able to speak in full sentences. No wheezing, no rhonchi, no crackles. No stridors Clear to auscultation bilaterally. Abdomen: non tender to palpation, non distended, soft, no guarding, no rebound, + bowel sounds. Obese. Neuro: Awake, Alert, oriented to name, self, situation, follows commands GCS=15. Speech is normal. Skin: no petechia, no purpura, no cyanosis, non-pale, not jaundice. Lower extremities: --no - Pitting edema no deformity, no focal swelling, no calf TTP. Makes eye contact. moves all four extremities. Face: no apparent facial droop. No CVA tenderness to percussion bilaterally. Ambulating in the ED independently. ED COURSE: Chief Complaint: Urinary Time Seen by MD: 15:47 Primary Care Provider: ZUHAIR Reviewed notes: Nurses Notes, Medications, Allergies Allergies: Coded Allergies: NO KNOWN ALLERGIES (Unverified , 01/28/23) Home Meds Active Scripts Nitrofurantoin Monohydrate Mac (Macrobid) 100 Mg Cap, 100 MG PO BID for 7 Days, #14 CAP Prov:DEVI LOUIS DO 10/13/24 Cholecalciferol (VITAMIN D) 5,000 Unit Tab, 5000 UNIT OR DAILY for 30 Days, #30 TAB Prov:YANACAROLYNETRUE RESIDENT 08/31/24 Levofloxacin Hemihydrate (LEVOFLOXACIN) 750 Mg Tab, 750 MG PO DAILY for 7 Days, #7 TAB Prov[facility] 08/31/24 Uhaklshnkzx-Qpshsuagfsoa-Lkvcx (Trelegy Ellipta 100-62.5-25 Mcg/INH) 1 Aer Aer, 1 AER IN DAILY for 90 Days, #90 AER Prov:YANACAROLYNETRUE RESIDENT 08/31/24 Cyclobenzaprine Hcl (Cyclobenzaprine Hcl) 5 Mg Tab, 1 TAB PO QHSP, #14 TAB 0 Refills Prov:STEW HINES 10/25/23 Prednisone (Prednisone) 20 Mg Tab, 20 MG PO BID for 3 Days, #6 TAB Prov:ABDIRIZAK DA SILVA MD 05/27/23 Pantoprazole Sodium Sesquihydr (Protonix) 40 Mg Tab, 40 MG PO DAILY for 30 Days, #30 TAB Prov:ARABELLA GUTIERREZ MD 05/16/23 Prednisone (Prednisone) 10 Mg Tab, 10 MG PO BID, #6 MG Prov:ARABELLA GUTIERREZ MD 05/16/23 Prednisone (Prednisone) 10 Mg Tab, 10 MG PO DAILY for 3 Days, #3 MG Prov:ARABELLA GUTIERREZ MD 05/16/23 Prednisone (Prednisone) 20 Mg Tab, 20 MG PO DAILY, #7 MG Prov:SELAM SPIVEY MD 03/30/23 Ipratropium [place] Hfa (Atrovent Hfa) 17 Mcg Aer, 17 MCG IN Q4HR, #1 AER Prov:SELAM SPIVEY MD 03/30/23 Albuterol Sulfate (VENTOLIN MDI) 90 Mcg Ih, 90 MCG IN Q4HR, #1 INH Prov:SELAM SPIVEY MD 03/30/23 Reported Medications [place] 3 Fatty Acids-Evening Pr (Retaine Om3) 1 Cap Cap, 1 CAP PO, CAP 05/13/23 Pravastatin Sodium (PRAVACHOL TABLET) 20 Mg Tb, 10 MG PO DAILY, TAB 05/13/23 Hydrochlorothiazide (Hydrochlorothiazide) 12.5 Mg Cap, 1 CAP PO DAILY 03/25/23 Aspirin (Aspirin Low Dose) 81 Mg Tab, 1 TAB PO DAILY 03/25/23 Albuterol Sulfate (Albuterol Sulfate Hfa) 108 Mcg/Act Aer, INH 03/25/23 Information Source: Patient Mode of Arrival: Ambulatory Past Medical History PAST MEDICAL HISTORY: Arthritis, Asthma, CHF, COPD, CVA, HTN Surgical History: Cholecystectomy, Hysterectomy SHAREPOINT APPLICATION DEVELOPER History: Denies all SHAREPOINT APPLICATION DEVELOPER Hx Family History Family History: Unknown Social History Smoker: Quit Greater Than 1 Year Alcohol: Denies ETOH Use Drugs: Denies Drug Use Lives In: Home Was a procedure done? Was a procedure done?: No Differential Diagnosis Kidney stone (Female): N/A Urinary Problem (Female): PID, Pyelonephritis, Urinary retention, UTI X-Ray, Labs, Meds, VS Vital Signs Date Time Temp Pulse Resp B/P (MAP) Pulse Ox O2 Delivery O2 Flow Rate FiO2 10/13/24 15:30 99.2 104 16 117/73 (88) 93 99.2 Lab Test 10/13/24 16:21 10/13/24 15:45 Range/Units White Blood Count 8.1 4.4-10.8 10^3/uL Red Blood Count 4.81 4.0-5.20 10^6/uL Hemoglobin 15.6 12.2-16.2 g/dL Hematocrit 44.5 36.0-46.0 % Mean Corpuscular Volume 92.4 80.0-100.0 fL Mean Corpuscular Hemoglobin 32.4 H 28.0-32.0 pg Mean Corpuscular Hemoglobin Concent 35.0 32.0-36.0 g/dL Red Cell Distribution Width 12.7 11.8-14.3 % Platelet Count 213 140-450 10^3/uL Mean Platelet Volume 9.1 6.9-10.8 fL Neutrophils (%) (Auto) 53.6 37.0-80.0 % Lymphocytes (%) (Auto) 29.2 10.0-50.0 % Monocytes (%) (Auto) 8.1 0.0-12.0 % Eosinophils (%) (Auto) 7.8 H 0.0-7.0 % Basophils (%) (Auto) 1.3 0.0-2.0 % Neutrophils # (Auto) 4.4 1.6-8.6 10 ^3/uL Lymphocytes # (Auto) 2.4 0.4-5.4 10 ^3/uL Monocytes # (Auto) 0.7 0-1.3 10 ^3/uL Eosinophils # (Auto) 0.6 0-0.8 10 ^3/uL Basophils # (Auto) 0.1 0-0.2 10 ^3/uL Nucleated Red Blood Cells 0.1 % Sodium Level 141 136-145 mmol/L Potassium Level 3.9 3.5-5.1 mmol/L Chloride Level 104 98-107 mmol/L Carbon Dioxide Level 27 20-31 mmol/L Anion Gap 10 5-15 Blood Urea Nitrogen 21 9-23 mg/dL Creatinine 0.74 0.550-1.02 mg/dL Glomerular Filtration Rate Calc 87 >90 mL/min BUN/Creatinine Ratio 28.4 H 10.0-20.0 Serum Glucose 147 H 74-106 mg/dL Lactic Acid Level 1.7 0.4-2.0 mmol/L Calcium Level 10.2 8.7-10.4 mg/dL Total Bilirubin 0.6 0.2-1.0 mg/dL Aspartate Amino Transferase (AST) 38 13-40 U/L Alanine Aminotransferase (ALT) 33 7-40 U/L Alkaline Phosphatase 131 H 46-116 U/L Total Protein 7.1 5.7-8.2 g/dL Albumin 4.6 3.2-4.8 g/dL Urine Color Yellow Yellow Urine Clarity Turbid H Clear Urine pH 5.5 5.0-9.0 Urine Specific [place] 1.030 1.001-1.035 Urine Protein Trace H Negative Urine Ketones Negative Negative Urine Blood Trace H Negative /uL Urine Nitrite Negative Negative Urine Bilirubin Negative Negative Urine Urobilinogen 2 H Negative mg/dL Urine Leukocyte Esterase 3+ Negative /uL Urine RBC 16 0 - 4 /hpf Urine Microscopic WBC 74 H 0-5 /HPF Urine Squamous Epithelial Cells Few <5 /hpf Urine Bacteria None seen None Seen /hpf Urine Mucus Few None Seen Urine Glucose Normal Normal mg/dL Time of 1ST Reevaluation: 16:17 Reevaluation 1ST: Unchanged Patient Education/Counseling: Other (Patient eloped) Family Education/Counseling: No Family Present Comments Patient eloped Patient presented with the above HPI.---urinary complaints---workup was initiated. patient was found with the above mentioned diagnosis. the following medications were ordered: please refer to order lists of meds and tests obtained by myself Dr. Louis. Patient has been observed in the ED adequate length of time to insure improvement/stability. Escalation of care considered: Consideration of escalation to observation or admission Patient eloped All the reports of any imaging studies that were ordered by myself were reviewed by myself. Departure 1 Departure Time of Disposition: 17:26 Impression: Primary Impression: UTI (urinary tract infection) Disposition: 07 LEFT AWOL/ELOPED Condition: Stable Additional Instructions: Patient eloped: Below is a set of instructions in case the patient returns to receive it. Additional instructions: You MUST follow-up with your primary care/family doctor in 1 to 2 days. If you are unable to see your primary care/family doctor, please return to our emergency room for re-assessment and re-evaluation in 1 to 2 days. Return to the emergency room here in our facility or to the nearest ER [facility] if your symptoms change or worsen. CONSULTATIONS: you MUST Follow-up for consultation as soon as possible with: -urology in 1-2 days. Please call for appointment. You MUST call the consultants office yourself to make an appointment. You may need to arrange that through your insurance and/or your primary/family doctor. If you are unable to see the professional services consultant in 1 to 2 days, you must return to our emergency room (or any other ER of your choice) for re-assessment and re- evaluation. Adequate fluid hydration. e-Prescriptions Nitrofurantoin Monohydrate Mac (Macrobid) 100 Mg Cap 100 MG PO BID for 7 Days, #14 CAP Prov: DEVI LOUIS DO 10/13/24 Discharged With: Self Critical Care Note Critical Care Time?: No I personally scribed for DEVI LOUIS DO ([email or web address]) on 10/13/24 at 16:07. Electronically submitted by Kobi Greenberg ([email or web address]). DEVI LOUIS DO October 13, 2024 16:07
[2024-10-13] MEDS ORDERED: cefTRIAXone 1GM/50ML D5W 50 ML IV ONE (16:15)
[2024-10-13 16:34] LABS: Basophils # (auto) 0.1 10 ^3/uL (0-0.2); Basophils % (auto) 1.3 % (0.0-2.0); Eosinophils # (auto) 0.6 10 ^3/uL (0-0.8); Eosinophils % (auto) 7.8 % (0.0-7.0); Hematocrit 44.5 % (36.0-46.0); Hemoglobin 15.6 g/dL (12.2-16.2); Lymphocytes # (auto) 2.4 10 ^3/uL (0.4-5.4); Lymphocytes % (auto) 29.2 % (10.0-50.0); Mean Corpuscular Hemoglobin 32.4 pg (28.0-32.0); Mean Corpuscular Volume 92.4 fL (80.0-100.0); Monocytes # (auto) 0.7 10 ^3/uL (0-1.3); Monocytes % (auto) 8.1 % (0.0-12.0); Neutrophils # (auto) 4.4 10 ^3/uL (1.6-8.6); Neutrophils % (auto) 53.6 % (37.0-80.0); Nucleated Red Blood Cells % 0.1 %; Platelet Count (auto) 213 10^3/uL (140-450); Red Blood Cells 4.81 10^6/uL (4.0-5.20); Red Cell Distribution Width 12.7 % (11.8-14.3); White Blood Cell 8.1 10^3/uL (4.4-10.8)
[2024-10-13 16:53] LABS: Alanine Aminotransferase 33 U/L (7-40); Albumin 4.6 g/dL (3.2-4.8); Anion Gap 10 (5-15); Aspartate Aminotransferase 38 U/L (13-40); BUN/Creatinine Ratio 28.4 (10.0-20.0); Bilirubin, Total 0.6 mg/dL (0.2-1.0); Blood Urea Nitrogen 21 mg/dL (9-23); Calcium 10.2 mg/dL (8.7-10.4); Carbon Dioxide 27 mmol/L (20-31); Chloride 104 mmol/L (98-107); Potassium 3.9 mmol/L (3.5-5.1); Sodium 141 mmol/L (136-145); Total Protein 7.1 g/dL (5.7-8.2)
[2024-10-13 16:54] LABS: Alkaline Phosphatase 131 U/L (46-116); Glucose 147 mg/dL (74-106)
[2024-10-13] MEDS ORDERED: NITR-87 PO (17:27)
== END 2024-10-13 23:02 | disposition left against medical advice (07) ==
LOC: ER 15:03
DX: N39.0 Urinary tract infection, site not specified (principal); I11.0 Hypertensive heart disease with heart failure; G89.29 Other chronic pain; I50.9 Heart failure, unspecified; J44.9 Chronic obstructive pulmonary disease, unspecified; E78.5 Hyperlipidemia, unspecified; M19.90 Unspecified osteoarthritis, unspecified site; Z79.52 Long term (current) use of systemic steroids; Z79.899 Other long term (current) drug therapy; Z86.73 Personal history of transient ischemic attack (TIA), and cerebral infarction without residual deficits; Z90.49 Acquired absence of other specified parts of digestive tract; Z90.710 Acquired absence of both cervix and uterus; Z79.82 Long term (current) use of aspirin
CPT/HCPCS: 36415; 80053; 81001; 83605; 85025; 96365

== ENCOUNTER 2025-03-08 10:51 | Inpatient (IN) | payer MEDICARE, OTHER ==
[~2025-03-08] VITALS: Ht 157.5 cm; Wt 94.0 kg
[~2025-03-08 10:51] MED LIST changes: +NITR-87 PO
--- NOTE | 2025-03-08 11:11 | ECG ---
[facility] Test Date: 2025-03-08 Test Time: 11:04:31 Pat Name: ANIVAL CANO Department: Room: Gender: F Medical Imaging Technician: EDUIN : [id number] Requested By: DEVI LOUIS Order Number: [id number] Reading MD: Measurements Intervals [place] Rate: 94 P: 14 RI: 130 QRS: 13 QRSD: 81 T: 53 QT: 355 QTc: 444 Interpretive Statements Sinus rhythm Low voltage, precordial leads Abnormal R-wave progression, early transition Please click the below link to view image of tracing.
--- NOTE | 2025-03-08 11:18 | ED.PDOC ---
SOB-HPI HPI Comments 69y F who presents to the ED for chief complaint of shortness of breath - pt states she has been having shortness of breath for the past 1x week - pt states she has noticed increased shortness of breath with noted increased work of breathing with exertion and ambulation - pt has been having associated chest tightness, dry cough and sore throat for the past 1x month - Patient notes history of asthma but states she does not use inhaler - patient was discharged from [facility] on September 08, 2024 with the following discharge summary: - On arrival, patient low-grade fever 99.3, tachycardia , CBC and CMP were unremarkable. Last echocardiogram showed 55% ejection fraction in May 2023. On examination, the patient had bilateral expiratory wheezing and productive cough. Patient was started on IV azithromycin on 08/29 and IV ceftriaxone on 08/30 given the likelihood of community-acquired pneumonia, received methylprednisolone 40 mg IV b.i.d. started 08/29, IV magnesium, nebulized treatment q.4 hourly for likely asthma exacerbation. Patient reported feeling better next day. We continued aspirin and atorvastatin. - 08/31-hemodynamically stable,on room air, wheezing resolved, patient reports feeling better since therefore discharged home on only levofloxacin 750 mg daily for the next 7 days. Renewed Trelegy inhaler. She is advised to follow up with primary care physician as outpatient within 7 days. Past Medical History COPD, CVA, hypertension, CHF,arthritis, asthma Past Surgical History Hysterectomy cholecystectomy left knee surgery, wrist surgery Medications: Aspirin, statin ALLERGIES: Denies Social history: denies ETOh, denies tobacco use, denies drug use RACHAEL: HPI: Poor Historian. REVIEW OF SYSTEMS: CONSTITUTIONAL: Denies acute: fever, diaphoresis, chills, generalized weakness. HEAD: Denies acute: headache, photophobia Eyes: Denies acute: Double vision, vision loss, eye pain, eye discharge. EARS: Denies acute: tinnitus, hearing loss, ear discharge, ear pain, THROAT: Denies acute: swelling, difficulty swallowing , pain with swallowing, change in voice. NECK: Denies acute: neck pain, neck swelling, stiff neck. HEART: Denies acute : chest pain, palpitations, LUNGS: Denies acute: , wheezing, , hemoptysis ABDOMEN: Denies acute: abdominal pain, Nausea, Vomiting, diarrhea, melena , hematemesis, hematochezia SKIN: Denies acute: rash, redness, lesions, itchiness. EXTREMITIES: Denies acute: calf pain, numbness, tingling, weakness, denies pain in extremity. Denies acute: Low back pain. Neuro: Denies acute: focal neurological deficit, motor or sensory focal neurological de ficit, tremors, seizure like activity, confusion, dizziness, change in mental status, loss of bowel or bladder function, cauda equina like symptoms. : Denies acute: dysuria, hematuria, flank pain, increase in urinary frequency. PSYCH: Denies acute: hallucination, suicidal ideation, homicidal ideation. FEMALE: Denies acute: abnormal vaginal bleeding, foul odor, unusual discharge. PHYSICAL EXAM: General: ---no-----acute distress, awake and alert. Head: normocephalic, atraumatic. Neck: supple, trachea is midline, no swelling. Throat: Normal phonation. Eyes:, no erythema, no purulent discharge, no proptosis, no icterus. Heart: regular rate, regular rhythm, no significant murmur appreciated. Lungs: no apparent respiratory distress, Able to speak in full sentences. No wheezing, no rhonchi, no crackles. No stridors Clear to auscultation bilaterally. Abdomen: non tender to palpation, non distended, soft, no guarding, no rebound, + bowel sounds. Neuro: Awake, Alert, oriented to name, self, situation, follows commands GCS=15. Speech is normal. Skin: no petechia, no purpura, no cyanosis, non-pale, not jaundice. Lower extremities: --no - Pitting edema no deformity, no focal swelling, no calf TTP. Makes eye contact. moves all four extremities. Face: no apparent facial droop. Ambulating in the ED independently. ED COURSE: DISCLAIMER: This medical document was created using an electronic medical record system with voice recognition software and computerized dictation system. Although this document has been carefully reviewed, there might still be some phonetic and typographical errors. Occasional wrong-word or "sound-alike" substitutions may have occurred due to the inherent limitations of voice recognition software. These areas are purely typographical due to imperfections of the software p alexandralizz and do not reflect any compromise in the patient's medical care. Please read the chart carefully and recognize, using context, where these substitutions have occurred. Chief Complaint: Shortness of Breath Time Seen by MD: 10:57 Primary Care Provider: ZUHAIR Reviewed notes: Medications, Allergies Information Source: Patient Mode of Arrival: Ambulatory Past Medical History PAST MEDICAL HISTORY: Arthritis, Asthma, CHF, COPD, CVA, HTN Surgical History: Cholecystectomy, Hysterectomy RECORDS ANALYST History: Denies all RECORDS ANALYST Hx Family History Family History: Unknown Social History Smoker: Quit Greater Than 1 Year Alcohol: Denies ETOH Use Drugs: Denies Drug Use Lives In: Home EKG EKG : Pulse Rate (adult): 94 M[place]inney: Normal Cardiac Rhythm: NSR Block: None Hypertrophy: None ST: Normal Was a procedure done? Was a procedure done?: No Differential Dx Differential Diagnosis: Other (DDx include ACS, unstable angina, anxiety, PE, pneumothroax, neoplasm, cardiac ischemia, COPD, asthma, CHF, pleural effusion, tobacco abuse, pneumonia, hypoxia, hypercapnia, anemia., infection/sepsis., pulmonary edema. Asthma, Cardiac tamponade, infection.) X-Ray, Labs, Meds, VS Vital Signs Date Time Temp Pulse Resp B/P (MAP) Pulse Ox O2 Delivery O2 Flow Rate FiO2 03/08/25 18:40 97.7 84 19 136/72 (93) 98 97.7 03/08/25 15:29 99.2 80 15 149/73 (98) 98 99.2 03/08/25 13:26 98.7 80 21 144/81 (102) 95 98.7 03/08/25 11:53 94 03/08/25 11:04 94 03/08/25 10:53 97.9 96 20 132/76 95 97.9 Lab Test 03/08/25 12:45 03/08/25 12:35 03/08/25 12:30 03/08/25 12:17 Range/Units Blood Gas Specimen Type Arterial Blood Gas Sample Site Right radial Blood Gas Patient Temperature 37.0 Arterial Blood Date Drawn [id number] Arterial Blood pH 7.431 7.350-7.450 Arterial Blood Partial Pressure CO2 43.3 32.0-45.0 mmHg Arterial Blood Partial Pressure O2 68.3 L 83.0-108.0 mmHg Arterial Blood HCO3 28.2 H 21.0-28.0 mmol/L Arterial Blood Oxygen Saturation 94.5 94.0-98.0 % Arterial Blood Base Excess 3.3 H -2.0-3.0 mmol/L Arterial Blood Oxyhemoglobin 93.1 L 94.0-98.0 % Arterial Blood Carboxyhemoglobin 1.0 0.5-1.5 % Arterial Blood Methemoglobin 0.5 0.0-1.5 % Jagdish Test Yes Blood Gas Total Hemoglobin 15.80 12.0-16.0 g/dL Blood Gas Modality Room air FiO2 % 21.0 D-Dimer, Quantitative 0.59 H 0.0-0.49 mg/L FEU Influenza Type A Antigen Negative Negative Influenza Type B Antigen Negative Negative Troponin I High Sensitivity < 3 L </=34 ng/L Thyroid Stimulating Hormone (TSH) 1.05 0.55-4.78 uIU/mL Test 03/08/25 11:14 03/08/25 00:00 Range/Units White Blood Count 6.8 4.4-10.8 10^3/uL Red Blood Count 4.69 4.0-5.20 10^6/uL Hemoglobin 15.1 12.2-16.2 g/dL Hematocrit 43.5 36.0-46.0 % Mean Corpuscular Volume 92.6 80.0-100.0 fL Mean Corpuscular Hemoglobin 32.3 H 28.0-32.0 pg Mean Corpuscular Hemoglobin Concent 34.9 32.0-36.0 g/dL Red Cell Distribution Width 12.9 11.8-14.3 % Platelet Count 216 140-450 10^3/uL Mean Platelet Volume 8.9 6.9-10.8 fL Neutrophils (%) (Auto) 50.4 37.0-80.0 % Lymphocytes (%) (Auto) 32.0 10.0-50.0 % Monocytes (%) (Auto) 7.0 0.0-12.0 % Eosinophils (%) (Auto) 9.9 H 0.0-7.0 % Basophils (%) (Auto) 0.7 0.0-2.0 % Neutrophils # (Auto) 3.4 1.6-8.6 10 ^3/uL Lymphocytes # (Auto) 2.2 0.4-5.4 10 ^3/uL Monocytes # (Auto) 0.5 0-1.3 10 ^3/uL Eosinophils # (Auto) 0.7 0-0.8 10 ^3/uL Basophils # (Auto) 0 0-0.2 10 ^3/uL Nucleated Red Blood Cells 0.0 % Sodium Level 140 136-145 mmol/L Potassium Level 4.0 3.5-5.1 mmol/L Chloride Level 102 98-107 mmol/L Carbon Dioxide Level 29 20-31 mmol/L Anion Gap 9 5-15 Blood Urea Nitrogen 12 9-23 mg/dL Creatinine 0.89 0.550-1.02 mg/dL Glomerular Filtration Rate Calc 70 >90 mL/min BUN/Creatinine Ratio 13.5 10.0-20.0 Serum Glucose 133 H 74-106 mg/dL Calcium Level 9.2 8.7-10.4 mg/dL Total Bilirubin 0.5 0.2-1.0 mg/dL Aspartate Amino Transferase (AST) 35 13-40 U/L Alanine Aminotransferase (ALT) 25 7-40 U/L Alkaline Phosphatase 136 H 46-116 U/L Troponin I High Sensitivity < 3 L </=34 ng/L B-Type Natriuretic Peptide 24.29 0-100 pg/mL Total Protein 7.0 5.7-8.2 g/dL Albumin 4.1 3.2-4.8 g/dL SARS-CoV-2 Antigen (Rapid) Negative NEGATIVE Microbiology Date/Time Source Procedure Growth Status 03/08/25 08:30 Sputum Gram Stain - Final Complete 03/08/25 08:30 Sputum Respiratory Culture - Final Complete [place] [address] Ph: [phone] DIAGNOSTIC IMAGING Diagnostic Imaging Report : [id number] Signed PATIENT: ANIVAL CANO ACCT: [id number] UNIT: [id number] : 1955 LOC: ER ROOM / BED: / AGE / SEX: 69 / F ADM STATUS: REG ER SERVICE 1101 ORDERING PHYSICIAN: DEVI LOUIS DO PROCEDURE(s): CXRP - CHEST PORTABLE REASON: sob ORDER NUMBER(s): [id number], ACCESSION NUMBER(s): [id number] EXAM: XY CHEST PORTABLE Indication: sob Technique: Single frontal view of the chest was obtained Comparison: XY CHEST PORTABLE on DOS: 08/29/24, XY CHEST TWO VIEWS ROUTINE on DOS: 05/25/23, CT CT ANGIO CHEST CONTRAST on DOS: 05/13/23, XY CHEST PORTABLE on DOS: 05/13/23, CT CT ANGIO CHEST CONTRAST on DOS: 03/24/23 FINDINGS: Lines and Tubes: None Lungs: No focal consolidation. Pleura: No effusion. No pneumothorax. Cardiomediastinal contours: Unremarkable Bones: No acute osseous abnormality. IMPRESSION: No acute cardiopulmonary disease. ATED BY: MICHAEL MCGUIRE MD DICTATED DATE/TIME: 03/08/25 115 SIGNED BY: MICHAEL MCGUIRE MD SIGNED DATE/TIME: 03/08/25 1154 CC: Time of 1ST Reevaluation: 00:00 Reevaluation 1ST: N/A Patient Education/Counseling: Diagnosis, Treatment Family Education/Counseling: No Family Present Comments MDM: patient presented with the above HPI.---acute respiratory distress---workup was initiated. patient was found with the above mentioned diagnosis. the following medications were ordered: please refer to order lists of meds and tests obtained by myself Dr. Louis. Patient ED course and VS have been stabilized. Patient has been reassessed in the ED and remained in a stable condition. Pertinent incidental findings were discussed with the patient and/or family. Patient/family voices understanding and is agreeable with plan. Patient has been observed in the ED adequate length of time to insure improvement/stability. Escalation of care considered: Consideration of escalation to observation or admission Patient was ADMITTED to the medicine team for further evaluation and treatment of their presentation. All the reports of any imaging studies that were ordered by myself were reviewed by myself. SEPSIS Sepsis Screen Date sepsis recognized/suspect: Mar 08, 2025 Time Sepsis recognized/suspect: 1054 Recent Procedure: No On Antibiotic Therapy: No Respiratory Rate >20: No Heart Rate >90: Yes Temp<36 C (96.8 F) or >38.3 C: No SBP <90 or MAP <65 mmHG: No New Acute Mental Status Change: No Is the patient on CPAP, BIPAP,: No Physician Orders Broadcast Operations Director (03/08/25 ) Chest Portable (03/08/25 11:01) Vital Signs Date Time Temp Pulse Resp B/P (MAP) Pulse Ox O2 Delivery O2 Flow Rate FiO2 03/08/25 18:40 97.7 84 19 136/72 (93) 98 97.7 03/08/25 15:29 99.2 80 15 149/73 (98) 98 99.2 03/08/25 13:26 98.7 80 21 144/81 (102) 95 98.7 03/08/25 11:53 94 03/08/25 11:04 94 03/08/25 10:53 97.9 96 20 132/76 95 97.9 Laboratory Tests Test 03/08/25 11:14 White Blood Count 6.8 10^3/uL (4.4-10.8) Departure 1 Departure Time of Disposition: 14:03 Impression: Primary Impression: Dyspnea Additional Impressions: Hypoxemia COPD exacerbation Disposition: ADMITTED INPATIENT Admit to: Tele Condition: Guarded e-Prescriptions Budesonide-Formoterol Fumarate (Breyna 160-4.5 Mcg/Act) 1 Aer Aer 2 PUFF IN BID for 28 Days, #1 AER Prov: OREN BAILEY RESIDENT 03/12/25 Albuterol Sulfate (VENTOLIN MDI) 90 Mcg Ih 90 MCG IN Q4HP PRN for 30 Days, #1 INH 1 Refill Prov: MAXIM ANG RESIDENT 03/10/25 Prednisone (Prednisone) 20 Mg Tab 40 MG PO DAILY for 4 Days, #8 MG Prov: MAXIM ANG RESIDENT 03/10/25 Levofloxacin Hemihydrate (LEVAQUIN 500 MG) 500 Mg Tab 1 TAB PO DAILY for 7 Days, #7 TAB Prov: MAXIM ANG RESIDENT 03/10/25 Discharged With: Self Critical Care Note Critical Care Time?: Yes (35 min-critical care time only) Heart Score Heart Score: Heart Score Response (Comments) Value History Moderate Suspicious 1 EKG Normal 0 Age >65 2 Risk Factors >3 or Hx ASHD 2 Troponin Normal limit 0 Total 5 I personally scribed for DEVI LOUIS DO ([email or web address]) on 03/08/25 at 11:18. Electronically submitted by Nadege Sethi ([facility]). I personally scribed for DEVI [facility]OUIS DO ([email or web address] on 03/08/25 at 11:53. Electronically submitted by Nadege Sethi ([facility]). I personally scribed for DEVI LOUIS DO ([facility]) on 03/08/25 at 13:02. Electronically submitted by Nadege Sethi ([facility]). DEVI LOUIS DO Mar 08, 2025 11:18
--- NOTE | 2025-03-08 11:56 | DVH ---
EXAM: XY CHEST PORTABLE Indication: sob Technique: Single frontal view of the chest was obtained Comparison: XY CHEST PORTABLE on DOS: 08/29/24, XY CHEST TWO VIEWS ROUTINE on DOS: 05/25/23, CT CT ANG IO CHEST CONTRAST on DOS: 05/13/23, XY CHEST PORTABLE on DOS: 05/13/23, CT CT ANGIO CHEST CONTRAST on DOS: 03/24/23 FINDINGS: Lines and Tubes: None Lungs: No focal consolidation. Pleura: No effusion. No pneumothorax. Cardiomediastinal contours: Unremarkable Bones: No acute osseous abnormality. IMPRESSION: No acute cardiopulmonary disease.
[2025-03-08 12:00] LABS: Hematocrit 43.5 % (36.0-46.0); Hemoglobin 15.1 g/dL (12.2-16.2); Mean Corpuscular Hemoglobin 32.3 pg (28.0-32.0); Mean Corpuscular Volume 92.6 fL (80.0-100.0); Nucleated Red Blood Cells % 0.0 %
[2025-03-08 12:17] LABS: Alanine Aminotransferase 25 U/L (7-40); Albumin 4.1 g/dL (3.2-4.8); Anion Gap 9 (5-15); BUN/Creatinine Ratio 13.5 (10.0-20.0); Bilirubin, Total 0.5 mg/dL (0.2-1.0); Blood Urea Nitrogen 12 mg/dL (9-23); Calcium 9.2 mg/dL (8.7-10.4); Carbon Dioxide 29 mmol/L (20-31); Chloride 102 mmol/L (98-107); Potassium 4.0 mmol/L (3.5-5.1); Sodium 140 mmol/L (136-145); Total Protein 7.0 g/dL (5.7-8.2)
[2025-03-08 12:19] LABS: Alkaline Phosphatase 136 U/L (46-116); Glucose 133 mg/dL (74-106)
[2025-03-08 12:53] LABS: Base Excess 3.3 mmol/L (-2.0-3.0)
[2025-03-08] MEDS: IPRATROPIUM BROM 0.5 MG/2.5ML INH SOL ONE (15:09)
[2025-03-08] MEDS: ALBUTEROL SULF 2.5 MG/0.5ML(0.5%) NEB SOLN NEB ONE ×2 (15:09→19:56)
[2025-03-08] MEDS: ALBUTEROL SULF 2.5 MG/0.5ML(0.5%) NEB SOLN ONE (15:09)
[2025-03-08] MEDS: IPRATROPIUM BROM 0.5 MG/2.5ML INH SOL NEB ONE ×2 (15:09→19:56)
[2025-03-08 15:11] LABS: COVID19 ANTIGEN SOFIA FIA NEGATIVE (NEGATIVE)
[2025-03-08] MEDS: ACETAMINOPHEN 325 MG TAB PO ONE (15:44)
[2025-03-08] MEDS: methylPREDNISolone SOD SUCC 125 MG/2 ML VL IV ONE (16:04)
[2025-03-08] MEDS ORDERED: ONDANSETRON HCL 4 MG/2 ML VIAL IV PRN (19:15)
--- NOTE | 2025-03-08 19:48 | DVHHPRES ---
History of Present Illness Resident Creating Document: MAXIM ANG RESIDENT Reason for Visit: SOB History of Present Illness This is a 69-year-old female who came into the ED with chief complain of shortness of breath. PMH: COPD, TIA, hypertension, CHF, arthritis, asthma. PSH: Partial hysterectomy, cholecystectomy, left knee surgery, left wrist surgery, two bladder surgeries SH: Denies alcohol use, illicit drug use, quit smoking but used to do 40 packs year Allergies: Denied Home medications: Fluticasone, hydrochlorothiazide, albuterol, Protonix, aspirin, pravastatin. Patient stated that for the last week she has been having worsening shortness of breath, worse on exertion, associated with chest tightness, as well as fatigue, chills, productive cough, yellow thick sputum, denies any hemoptysis, she has also been experiencing headaches, dizziness, sore throat, ear pain. Denies any fevers, significant chest pain, abdominal pain, nausea, vomiting, any urinary symptoms. She denies any recent sick contacts, she traveled to [place] around a month ago. On arrival to the ED patient's was noted to be significantly shortness of breath, she was given breathing treatments, Solu-Medrol, she remained on room air. COVID and flu test came back negative, D-dimer was elevated. Chest x-ray did not show any significant opacity. Past Surgical History See HPI Family History See HPI. Past Social History See HPI. Review of Systems Constitutional: Yes: Chills, Malaise; No: Fever, Sweats, Weakness, Other Eyes: No: Pain, Vision change, Conjunctivae inflammation, Eyelid inflammation, Other, Redness ENT: No: Ear pain, Ear discharge, Nose pain, Nose discharge, Nose congestion, Mouth pain, Mouth swelling, Throat pain, Throat swelling, Other Respiratory: Cough, Shortness of breath, SOB with excertion; No: Dry, Wheezing, Hemoptysis, Pleuritic Pain, Sputum, Wheezing, Other Cardiovascular: Edema; No: Chest Pain, Palpitations, Orthopnea, Paroxysmal Noc. Dyspnea, Lt Headedness, Other Gastrointestinal: No: Nausea, Vomiting, Abdominal Pain, Diarrhea, Constipation, Melena, Hematochezia, Other Genitourinary: No Dysuria, No Frequency, No Incontinence, No Hematuria, No Retention, No Other Musculoskeletal: No: other, neck pain, shoulder pain, arm pain, back pain, hand pain, leg pain, foot pain Skin: No: Rash, Lesions, Jaundice, Bruising, Other Neurological: No: Weakness, Numbness, Incoordination, Change in speech, Confusion, Seizures, Other Allergies: Coded Allergies: NO KNOWN ALLERGIES (Unverified , 01/28/23) Medications Current Medications Medications Dose Ordered Sig/Matthew Route Start Time Stop Time Status Last Admin Dose Admin Sodium Chloride 10 ml Q8HR IV 03/08/25 22:00 Ondansetron HCl 4 mg Q4HP PRN IV 03/08/25 19:15 Enoxaparin Sodium 40 mg DAILY SC 03/09/25 10:00 Acetaminophen 650 mg Q6HP PRN PO 03/08/25 19:15 Albuterol 2.5 mg Q4HWA NEB 03/08/25 22:00 Ipratropium [place] 0.5 mg Q4HWA NEB 03/08/25 22:00 Methylprednisolone Sodium Succinate 40 mg BID IV 03/08/25 22:00 Azithromycin 250 ml @ 125 mls/hr DAILY IV 03/09/25 10:00 Exam Vital Signs Vital Signs Date Time Temp Pulse Resp B/P (MAP) Pulse Ox O2 Delivery O2 Flow Rate FiO2 03/08/25 18:40 97.7 84 19 136/72 (93) 98 97.7 Exam Physical examination as below: General: Awake, alert, in no acute distress. HEENT: Head is normocephalic and atraumatic. Pupils are equal, round, and reactive to light. Extraocular muscles are intact. No nasal discharge. No facial trauma. Intraoral exam shows pharyngeal erythema, no exudate Neck: Supple with no cervical lymphadenopathy. Heart: Regular rate without murmur, rub, or gallop. Lungs: Diminished breath sounds bilaterally, bilateral scattered wheezing, no crackles Abdomen: No external sign of injury. Bowel sounds are present. Abdomen is soft, nontender. No rebound, no guarding, no rigidity. There are no palpable masses. There is no flank pain on exam. Extremities: Strong peripheral pulses. There is no clubbing, no cyanosis, and mild trace lower leg edema Skin: No rash. Neurologic: Cranial nerves II-XII intact without motor, sensory, or cerebellar deficit, no asterixis. Labs/Xrays Labs Test 03/08/25 12:45 03/08/25 12:35 03/08/25 12:30 03/08/25 12:17 Range/Units Blood Gas Specimen Type Arterial Blood Gas Sample Site Right radial Blood Gas Patient Temperature 37.0 Arterial Blood Date Drawn [id number] Arterial Blood pH 7.431 7.350-7.450 Arterial Blood Partial Pressure CO2 43.3 32.0-45.0 mmHg Arterial Blood Partial Pressure O2 68.3 L 83.0-108.0 mmHg Arterial Blood HCO3 28.2 H 21.0-28.0 mmol/L Arterial Blood Oxygen Saturation 94.5 94.0-98.0 % Arterial Blood Base Excess 3.3 H -2.0-3.0 mmol/L Arterial Blood Oxyhemoglobin 93.1 L 94.0-98.0 % Arterial Blood Carboxyhemoglobin 1.0 0.5-1.5 % Arterial Blood Methemoglobin 0.5 0.0-1.5 % Jagdish Test Yes Blood Gas Total Hemoglobin 15.80 12.0-16.0 g/dL Blood Gas Modality Room air FiO2 % 21.0 D-Dimer, Quantitative 0.59 H 0.0-0.49 mg/L FEU Influenza Type A Antigen Negative Negative Influenza Type B Antigen Negative Negative Troponin I High Sensitivity < 3 L </=34 ng/L Test 03/08/25 11:14 03/08/25 00:00 Range/Units White Blood Count 6.8 4.4-10.8 10^3/uL Red Blood Count 4.69 4.0-5.20 10^6/uL Hemoglobin 15.1 12.2-16.2 g/dL Hematocrit 43.5 36.0-46.0 % Mean Corpuscular Volume 92.6 80.0-100.0 fL Mean Corpuscular Hemoglobin 32.3 H 28.0-32.0 pg Mean Corpuscular Hemoglobin Concent 34.9 32.0-36.0 g/dL Red Cell Distribution Width 12.9 11.8-14.3 % Platelet Count 216 140-450 10^3/uL Mean Platelet Volume 8.9 6.9-10.8 fL Neutrophils (%) (Auto) 50.4 37.0-80.0 % Lymphocytes (%) (Auto) 32.0 10.0-50.0 % Monocytes (%) (Auto) 7.0 0.0-12.0 % Eosinophils (%) (Auto) 9.9 H 0.0-7.0 % Basophils (%) (Auto) 0.7 0.0-2.0 % Neutrophils # (Auto) 3.4 1.6-8.6 10 ^3/uL Lymphocytes # (Auto) 2.2 0.4-5.4 10 ^3/uL Monocytes # (Auto) 0.5 0-1.3 10 ^3/uL Eosinophils # (Auto) 0.7 0-0.8 10 ^3/uL Basophils # (Auto) 0 0-0.2 10 ^3/uL Nucleated Red Blood Cells 0.0 % Sodium Level 140 136-145 mmol/L Potassium Level 4.0 3.5-5.1 mmol/L Chloride Level 102 98-107 mmol/L Carbon Dioxide Level 29 20-31 mmol/L Anion Gap 9 5-15 Blood Urea Nitrogen 12 9-23 mg/dL Creatinine 0.89 0.550-1.02 mg/dL Glomerular Filtration Rate Calc 70 >90 mL/min BUN/Creatinine Ratio 13.5 10.0-20.0 Serum Glucose 133 H 74-106 mg/dL Calcium Level 9.2 8.7-10.4 mg/dL Total Bilirubin 0.5 0.2-1.0 mg/dL Aspartate Amino Transferase (AST) 35 13-40 U/L Alanine Aminotransferase (ALT) 25 7-40 U/L Alkaline Phosphatase 136 H 46-116 U/L B-Type Natriuretic Peptide 24.29 0-100 pg/mL Total Protein 7.0 5.7-8.2 g/dL Albumin 4.1 3.2-4.8 g/dL SARS-CoV-2 Antigen (Rapid) Negative NEGATIVE SEPSIS Sepsis Screen Date sepsis recognized/suspect: Mar 08, 2025 Time Sepsis recognized/suspect: 1054 Recent Procedure: No On Antibiotic Therapy: No Respiratory Rate >20: No Heart Rate >90: Yes Temp<36 C (96.8 F) or >38.3 C: No SBP <90 or MAP <65 mmHG: No New Acute Mental Status Change: No Is the patient on CPAP, BIPAP,: No Physician Orders Abg W/ Co-Ox (03/08/25 12:30) Admit (03/08/25 19:08) Allergies (03/08/25 19:08) Code Status (03/08/25 19:08) Sodium Chloride Lock (Saline Lock Ns) (03/08/25 22:00) Ondansetron Hcl (Zofran) (03/08/25 19:15) Enoxaparin Sodium (Lovenox) (03/09/25 10:00) Complete Blood Count (03/09/25 04:00) Comprehensive Metabolic Panel (03/09/25 04:00) Cardiac Diet-2gna,Lofat,Lochol (03/09/25 Breakfast) Condition: Fair (03/08/25 19:08) Acetaminophen Tablet (Tylenol Tablet) (03/08/25 19:15) Notify Md Of Changes From Base (03/08/25 19:08) Albuterol Medneb (Ventolin Medneb) (03/08/25 22:00) Ipratropium Medneb (Atrovent Medneb) (03/08/25 22:00) Methylprednisolone Sod Succ (Solu Medrol (03/08/25 22:00) Azithromycin 500mg/ 250ml (Zithromax 50 (03/09/25 10:00) Azithromycin 500mg/ 250ml (Zithromax 50 (03/08/25 19:15) Bilat Lower Dvt (03/08/25 19:08) Thyroid Stimulating Hormone (03/08/25 19:22) Urinalysis (03/08/25 19:22) Respiratory Culture W/ Gs (03/08/25 19:22) Vital Signs Date Time Temp Pulse Resp B/P (MAP) Pulse Ox O2 Delivery O2 Flow Rate FiO2 03/08/25 18:40 97.7 84 19 136/72 (93) 98 97.7 03/08/25 15:29 99.2 80 15 149/73 (98) 98 99.2 03/08/25 13:26 98.7 80 21 144/81 (102) 95 98.7 03/08/25 11:53 94 Laboratory Tests Test 03/08/25 11:14 White Blood Count 6.8 10^3/uL (4.4-10.8) Medications Medications Dose Ordered Sig/Matthew Route Start Time Stop Time Status Last Admin Dose Admin Acetaminophen 650 mg ONCE ONCE PO 03/08/25 15:30 03/08/25 15:31 DC 03/08/25 15:44 650 MG Albuterol 2.5 mg ONCE ONCE NEB 03/08/25 14:15 03/08/25 14:59 DC 03/08/25 15:09 2.5 MG Ipratropium [place] 1 mg ONCE ONCE NEB 03/08/25 14:15 03/08/25 14:59 DC 03/08/25 15:09 1 MG Methylprednisolone Sodium Succinate 125 mg ONCE ONCE IV 03/08/25 14:15 03/08/25 14:59 DC 03/08/25 16:04 125 MG Assessment/Plan Assessment/Plan #COPD exacerbation #Acute hypoxic respiratory failure #Pneumonia Gram-positive versus Gram-negative, viral, atypical Nasal cannula p.r.n. DuoNebs q.4 hours while awake Azithromycin IV Solu-Medrol 40 mg IV b.i.d. Sputum culture COVID and flu tests were negative. #Elevated D-dimer Order lower extremity DVT ultrasound Low Wells score #Hypertension #Obesity #Chronic diastolic CHF #History of arthritis Resume home medications Counseled on lifestyle modifications PUD prophylaxis: Protonix DVT prophylaxis: Lovenox Goals of care were discussed for over 30 minutes. Full code Case was discussed with Dr. Waldrop Plan discussed with: Patient, Other (RN) My Orders Orders - MAXIM ANG RESIDENT Procedure Category Date Status Time Admit ADMIT 03/08/25 Transmitted 19:08 Allergies KATHIA 03/08/25 In Process 19:08 Code Status CODE 03/08/25 Transmitted 19:08 Sodium Chloride Lock PHA 03/08/25 In Process (Saline Lock Ns) 22:00 Ondansetron Hcl PHA 03/08/25 In Process (Zofran) 19:15 Enoxaparin Sodium PHA 03/09/25 In Process (Lovenox) 10:00 Complete Blood Count LAB 03/09/25 Verified 04:00 Comprehensive LAB 03/09/25 Verified Metabolic Panel 04:00 Cardiac DIET 03/09/25 Transmitted Diet-2gna,Lofat,Lochol Breakfast Condition: Fair KATHIA 03/08/25 In Process 19:08 Acetaminophen Tablet PHA 03/08/25 In Process (Tylenol Tablet) 19:15 Notify Of Changes KATHIA 03/08/25 In Process From Base 19:08 Albuterol Medneb PHA 9/25/25 In Process (Ventolin Medneb) 22:00 Ipratropium Medneb PHA 03/08/25 In Process (Atrovent Medneb) 22:00 Methylprednisolone PHA 03/08/25 In Process Sod Succ (Solu Medrol 22:00 Azithromycin 500mg/ PHA 03/09/25 In Process 250ml (Zithromax 50 10:00 Azithromycin 500mg/ PHA 03/08/25 In Process 250ml (Zithromax 50 19:15 Bilat Lower Dvt US 03/08/25 Logged 19:08 Thyroid Stimulating LAB 03/08/25 Logged Hormone 19:22 Urinalysis LAB 03/08/25 Logged 19:22 Respiratory Culture KAREN 03/08/25 Logged W/ Gs 19:22 MAXIM ANG RESIDENT Mar 08, 2025 19:48
[2025-03-08] MEDS: AZITHROMYCIN 500MG/ 250ML 250 ML IV ONE (19:49)
--- NOTE | 2025-03-08 19:57 | DVH ---
EXAM: US BILAT LOWER DVT Clinical History: elevated ddimer Comparison: US BILAT LOWER DVT on DOS: 03/25/23 Technique: Duplex Doppler evaluation of the deep venous systems of both lower extremities from the common femora l veins to the popliteal veins including color Doppler and spectral/pulsed waveform analysis was perf ormed. Findings: No visible intraluminal venous thrombus. No evidence of incompressibility or abnormal color or spectr al Doppler flow visualized in the deep bilateral lower extremity veins. Proximal greater saphenous ve ins are grossly unremarkable. Multiple benign-appearinglymph nodes in the right groin, measuring up to 2.8 cm. Impression: 1. No sonographic evidence of deep venous thrombosis throughout the bilateral lower extremities from the popliteal veins to the common femoral veins.
[2025-03-08 21:12] LABS: Urine Protein, UAD Negative (Negative)
[2025-03-08 22:20] VITALS: BP 126/69; PULSE 103; RESP 19; TEMP 97.6; O2SAT 93
[2025-03-08] MEDS: SODIUM CHLOR 0.9% PF (SALINE LOCK) 10ML VIAL/SYR IV SCH (22:28)
[2025-03-08] MEDS: methylPREDNISolone SOD SUCC 40 MG/ML VL IV SCH (22:28)
[2025-03-08] MEDS: ACETAMINOPHEN 325 MG TAB PO PRN (22:29)
[2025-03-08 22:49] VITALS: PULSE 100; RESP 14; O2SAT 95
[2025-03-08] MEDS: IPRATROPIUM BROM 0.5 MG/2.5ML INH SOL NEB SCH (22:49)
[2025-03-08] MEDS: ALBUTEROL SULF 2.5 MG/0.5ML(0.5%) NEB SOLN NEB SCH (22:49)
[2025-03-08 23:24] VITALS: PULSE 102; RESP 19
[2025-03-09] VITALS (14 sets, daily range): BP systolic 111–132; BP diastolic 61–76; PULSE 96–114; RESP 16–20; TEMP 97.6–99; O2SAT 91–100
[2025-03-09] MEDS: PANTOPRAZOLE 40 MG TAB PO SCH (06:08)
[2025-03-09 06:59] LABS: Hematocrit 46.1 % (36.0-46.0); Hemoglobin 15.4 g/dL (12.2-16.2); Mean Corpuscular Hemoglobin 31.1 pg (28.0-32.0); Mean Corpuscular Volume 93.0 fL (80.0-100.0); Nucleated Red Blood Cells % 0.0 %
[2025-03-09 07:16] LABS: Alanine Aminotransferase 24 U/L (7-40); Albumin 4.3 g/dL (3.2-4.8); Anion Gap 15 (5-15); BUN/Creatinine Ratio 13.5 (10.0-20.0); Bilirubin, Total 0.4 mg/dL (0.2-1.0); Blood Urea Nitrogen 13 mg/dL (9-23); Calcium 9.8 mg/dL (8.7-10.4); Carbon Dioxide 21 mmol/L (20-31); Chloride 102 mmol/L (98-107); Potassium 4.3 mmol/L (3.5-5.1); Sodium 138 mmol/L (136-145); Total Protein 7.4 g/dL (5.7-8.2)
[2025-03-09 07:18] LABS: Alkaline Phosphatase 135 U/L (46-116); Glucose 229 mg/dL (74-106)
[2025-03-09] MEDS: hydroCHLOROthiazide 25 MG TAB PO SCH (10:20)
[2025-03-09] MEDS: ASPirin-EC 81 mg tab PO SCH (10:20)
[2025-03-09] MEDS: ENOXAPARIN SOD 40 MG/0.4 ML SYRINGE SC SCH (10:22)
[2025-03-09] MEDS: AZITHROMYCIN 500MG/ 250ML 250 ML IV SCH (10:23)
[2025-03-09 10:53] LABS: Lactic Acid w/Reflex 5.0 mmol/L (0.4-2.0)
[2025-03-09] MEDS ORDERED: VANCOMYCIN PER PHARMACY 0 MG IV SCH (11:30)
[2025-03-09] MEDS: LACTATED RINGER'S 2,000 ML IV ONE (11:30)
[2025-03-09] MEDS: IPRATROPIUM BROM 0.5 MG/2.5ML INH SOL NEB SCH (12:31)
[2025-03-09] MEDS: LEVALBUTEROL HCL 1.25 MG/3 ML NEB NEB SCH (12:31)
--- NOTE | 2025-03-09 12:52 | DVHPNRES ---
Progress Note Date Seen: Mar 09, 2025 Resident Creating Document: CHRIS JAUREGUI RESIDENT Medical Necessity Reason Pt with a Central, PICC or Fol: No Subjective Review of Systems This is a 69-year-old female who came into the ED with chief complain of shortness of breath. PMH: COPD, TIA, hypertension, CHF, arthritis, asthma. PSH: Partial hysterectomy, cholecystectomy, left knee surgery, left wrist surgery, two bladder surgeries SH: Denies alcohol use, illicit drug use, quit smoking; 40pack-year Allergies: Denied Home medications: Fluticasone, hydrochlorothiazide, albuterol, Protonix, aspirin, pravastatin. Patient stated that for the last week she has been having worsening shortness of breath, worse on exertion, associated with chest tightness, as well as fatigue, chills, productive cough, yellow thick sputum, denies any hemoptysis, she has also been experiencing headaches, dizziness, sore throat, ear pain. Denies any fevers, significant chest pain, abdominal pain, nausea, vomiting, any urinary symptoms. She denies any recent sick contacts, she traveled to [place] around a month ago. On arrival to the ED patient's was noted to be significantly shortness of breath, she was given breathing treatments, Solu-Medrol, she remained on room air. COVID and flu test came back negative, D-dimer was elevated. Chest x-ray did not show any significant opacity. Past Surgical History See HPI Family History See HPI. Past Social History See HPI. The patient was seen and examined at bedside. Overnight events were reviewed. She believes all her symptoms started after traveling to [place] by airplane, the air conditioner was too cold, she reports having chest pain which increases by breathing. She reports improvement in her shortness of breaths after she received the antibiotic treatment yesterday. She also have ear pain following the journey. She denies any other new complaints. Objective vital signs Vital Sign Date Time Temp Pulse Resp B/P (MAP) Pulse Ox O2 Delivery O2 Flow Rate FiO2 03/09/25 12:35 105 18 92 03/09/25 12:28 99.0 132/69 (90) 99.0 03/09/25 00:02 0.0 03/08/25 23:24 Nasal Cannula* 28 Total Intake and Output 03/08/25 03/08/25 03/09/25 15:00 23:00 07:00 Intake Total 472 ml Balance 472 ml medications Current Medications Medications Dose Ordered Sig/Matthew Route Start Time Stop Time Status Last Admin Dose Admin Sodium Chloride 10 ml Q8HR IV 03/08/25 22:00 03/09/25 06:08 10 ML Ondansetron HCl 4 mg Q4HP PRN IV 03/08/25 19:15 Enoxaparin Sodium 40 mg DAILY SC 03/09/25 10:00 03/09/25 10:22 40 MG Acetaminophen 650 mg Q6HP PRN PO 03/08/25 19:15 03/08/25 22:29 650 MG Methylprednisolone Sodium Succinate 40 mg BID IV 03/08/25 22:00 03/09/25 10:20 40 MG Azithromycin 250 ml @ 125 mls/hr DAILY IV 03/09/25 10:00 03/09/25 10:23 125 MLS/HR Pantoprazole Sodium 40 mg DAILY@0600 PO 03/09/25 06:00 03/09/25 06:08 40 MG Aspirin 81 mg DAILY PO 03/09/25 10:00 03/09/25 10:20 81 MG Ipratropium [place] 0.5 mg Q6HWA NEB 03/09/25 12:00 03/09/25 12:31 0.5 MG Levalbuterol HCl 0.625 mg Q6HWA NEB 03/09/25 12:00 03/09/25 12:31 0.625 MG Piperacillin Sod/ Tazobactam Sod 100 ml @ 25 mls/hr Q8HR IV 03/09/25 14:00 Vancomycin HCl 0 ml @ 0 mls/hr UD IV 03/09/25 11:30 UNV Examination Pt is lying on bed General Appearance: Nasal cannula oxygen, Alert, Oriented X3, Cooperative, Mild distress HEENT: Atraumatic, Mucous membranes moist/pink Respiratory: Clear to auscultation, Normal air movement, Cardiovascular: Regular rate, Normal S1, Normal S2, No murmurs Abdominal/ : Active bowel sounds, Soft, no distention, no tenderness Extremities: No edema, Normal pulses, No tenderness/swelling Skin: No Significant rash, except past surgical scars Neuro: Normal speech, sensorimotor deficits none Psych/Mental Status: Mental status NL, Mood NL Nurse was there as green marketing analyst during examination laboratory and microbiology Laboratory Tests 03/09/25 06:03 Test 03/09/25 06:03 Range/Units Serum Glucose 229 H 74-106 mg/dL Labs and/or images reviewed: Labs reviewed by me, Image(s) reviewed by me Problem List/Assessment/Plan Problem List/Assessment/Plan #COPD exacerbation #Acute hypoxic respiratory failure #Pneumonia Gram-positive versus Gram-negative, viral, atypical #Sepsis likely due to pneumonia Nasal cannula p.r.n. DuoNebs q.4 hours while awake Azithromycin IV Solu-Medrol 40 mg IV b.i.d. Sputum culture COVID and flu tests were negative. Lactic acid trending upwards WBC 15.2 Patient is tachycardic IV lactated Ringer's Telemetry monitoring Vancomycin 1.25 g IV Zosyn IV Q 8 hour Blood cultures sent Continue breathing treatments with levalbuterol and ipratropium. #Elevated D-dimer Lower extremity DVT ultrasound: ruled out DVT Wells score below 4 #Hypertension #Chronic diastolic CHF #History of arthritis Hydrochlorothiazide 25 mg daily #Obesity #Dyslipidemia Pravastatin PUD prophylaxis: Protonix DVT prophylaxis: Lovenox Goals of care discussed with the patient for 20 minutes: Full code status Case discussed with Dr. Cha , patient and RN Plan discussed with: Patient, Other (RN) Date of Service: Mar 09, 2025 Billing Provider: ISABELLE CHA MD Common Visit Codes: [id number] INP/OBS CARE(HIGH) Secondary Visit Codes: [id number] CARE PLAN 30 MINUTES (20 minutes) Addendum Addendum Addendum I was physically present for the caceres portions of the service provided to patient by THE RESIDENT. I have reviewed the documentation, discussed the case with resident and agree with the resident's documentation except as noted. Also the patient's clinical case was discussed with the patient's nurse. This medical document was created using an electronic medical record system with computerized dictation system. Although this document has been carefully reviewed, there might still be some phonetic and typographical errors. These areas are purely typographical due to imperfections of the software programs, and do not reflect any compromise in the patient's medical care. Late signature. CHRIS JAUREGUI RESIDENT Mar 09, 2025 12:52 ISABELLE CHA MD Mar 12, 2025 05:48
[2025-03-09] MEDS: PIPERACILLIN-TAZOB 3.375GM 100 ML IV SCH (14:00)
[2025-03-09] MEDS: VANCOMYCIN 1.25GM/250ML 250 ML IV ONE (15:05)
[2025-03-09 15:55] LABS: Lactic Acid w/Reflex 5.3 mmol/L (0.4-2.0)
[2025-03-09] MEDS: SODIUM CHLORIDE 0.9% 1,000 ML IV ONE ×2 (16:45→17:30)
[2025-03-09 17:59] LABS: Alanine Aminotransferase 20 U/L (7-40); Alkaline Phosphatase 109 U/L (46-116); Calcium 8.9 mg/dL (8.7-10.4); Carbon Dioxide 21 mmol/L (20-31); Chloride 103 mmol/L (98-107); Potassium 4.2 mmol/L (3.5-5.1)
[2025-03-09 18:00] LABS: Albumin 3.5 g/dL (3.2-4.8); Anion Gap 13 (5-15); BUN/Creatinine Ratio 17.0 (10.0-20.0); Bilirubin, Total 0.3 mg/dL (0.2-1.0); Blood Urea Nitrogen 15 mg/dL (9-23); Glucose 310 mg/dL (74-106); Sodium 137 mmol/L (136-145); Total Protein 5.8 g/dL (5.7-8.2)
[2025-03-09 20:37] LABS: Lactic Acid w/Reflex 5.2 mmol/L (0.4-2.0)
--- NOTE | 2025-03-09 21:31 | DVH ---
EXAM: XY CHEST XRAY 1 VIEW CLINICAL HISTORY: SOB TECHNIQUE: Single AP view of the chest WID: COMPARISON: XY CHEST PORTABLE on DOS: 03/08/25 Lines and tubes: None Chest: The heart size and pulmonary vasculature is within normal limits. Linear [id number]-right bibasilar opacities. No pneumothorax or pleural effusion. Limited dept h of inspiration. The osseous structures are grossly intact. IMPRESSION: 1. Limited depth of inspiration with linear bibasilar opacities, greater on the left likely atelectas is.
[2025-03-09] MEDS ORDERED: PRAVASTATIN SODIUM 20 MG TAB PO SCH (22:00)
[2025-03-10] VITALS (16 sets, daily range): BP systolic 111–147; BP diastolic 64–82; PULSE 78–101; RESP 16–20; TEMP 92.7–98.1; O2SAT 92–99
[2025-03-10] MEDS: VANCOMYCIN 750MG KIT 100 ML IV SCH (05:30)
[2025-03-10 07:53] LABS: Hematocrit 39.8 % (36.0-46.0); Hemoglobin 13.7 g/dL (12.2-16.2); Mean Corpuscular Hemoglobin 32.2 pg (28.0-32.0); Mean Corpuscular Volume 93.6 fL (80.0-100.0); Nucleated Red Blood Cells % 0.0 %
[2025-03-10] MEDS: methylPREDNISolone SOD SUCC 40 MG/ML VL IV SCH (09:08)
[2025-03-10 10:39] LABS: Anion Gap 14 (5-15)
[2025-03-10 10:40] LABS: Calcium 9.0 mg/dL (8.7-10.4)
[2025-03-10 10:45] LABS: BUN/Creatinine Ratio 12.4 (10.0-20.0); Blood Urea Nitrogen 12 mg/dL (9-23)
[2025-03-10] MEDS ORDERED: DEXTROSE (50%) 50ML SYRG IV PRN (10:45)
[2025-03-10 10:48] LABS: Sodium 137 mmol/L (136-145)
[2025-03-10 10:49] LABS: Carbon Dioxide 20 mmol/L (20-31); Chloride 103 mmol/L (98-107); Glucose 241 mg/dL (74-106); Potassium 4.5 mmol/L (3.5-5.1)
[2025-03-10] MEDS: MAALOX PLUS or MAALOX 30 ML PO ONE (11:46)
[2025-03-10] MEDS: ACCU-CHEK COMFORT CURVE STRIP VI SCH (11:47)
[2025-03-10] MEDS: InsuLIN REG 1unit/0.01ml Soln (100units/ml) SC SCH (11:57)
[2025-03-10] MEDS: IBUPROFEN 400 MG TAB PO ONE (12:47)
[2025-03-10 14:41] LABS: Lactic Acid w/Reflex 2.6 mmol/L (0.4-2.0)
[2025-03-10 15:53] LABS: Base Excess -1.6 mmol/L (-2.0-3.0)
[2025-03-10] MEDS ORDERED: LEVO500T91 PO (16:09)
[2025-03-10] MEDS ORDERED: ALBUAER3 IN (16:09)
[2025-03-10] MEDS ORDERED: PRED20TA2 PO (16:09)
[2025-03-10] MEDS: SODIUM CHLORIDE 0.9% 500 ML IV ONE (17:37)
--- NOTE | 2025-03-10 18:01 | DVHPNRES ---
Progress Note Date Seen: Mar 10, 2025 Resident Creating Document: CHRIS JAUREGUI Medical Necessity Reason Pt with a Central, PICC or Fol: No Subjective Review of Systems The patient was seen and examined at bedside. Overnight events were reviewed. She reports improvement in her shortness of breath, however she reports epigastric pain and burning sensation after eating. She denies any chest pain, fever, abdominal pain, constipation, or urinary symptoms or any other complaints today. Objective vital signs Vital Sign Date Time Temp Pulse Resp B/P (MAP) Pulse Ox O2 Delivery O2 Flow Rate FiO2 03/10/25 17:00 97.7 101 18 147/82 (103) 92 97.7 03/10/25 12:11 Nasal Cannula* 2 28 Total Intake and Output 03/09/25 03/09/25 03/10/25 15:00 23:00 07:00 Intake Total 2250 ml 250 ml 665 ml Output Total 2100 ml Balance 2250 ml 250 ml -1435 ml medications Current Medications Medications Dose Ordered Sig/Matthew Route Start Time Stop Time Status Last Admin Dose Admin Sodium Chloride 10 ml Q8HR IV 03/08/25 22:00 03/10/25 14:00 10 ML Ondansetron HCl 4 mg Q4HP PRN IV 03/08/25 19:15 Enoxaparin Sodium 40 mg DAILY SC 03/09/25 10:00 03/10/25 09:08 40 MG Acetaminophen 650 mg Q6HP PRN PO 03/08/25 19:15 03/09/25 22:40 650 MG Azithromycin 250 ml @ 125 mls/hr DAILY IV 03/09/25 10:00 03/10/25 09:08 125 MLS/HR Pantoprazole Sodium 40 mg DAILY@0600 PO 03/09/25 06:00 03/10/25 05:30 40 MG Aspirin 81 mg DAILY PO 03/09/25 10:00 03/10/25 09:08 81 MG Ipratropium [place] 0.5 mg Q6HWA NEB 03/09/25 12:00 03/10/25 12:11 0.5 MG Levalbuterol HCl 0.625 mg Q6HWA NEB 03/09/25 12:00 03/10/25 12:11 0.625 MG Piperacillin Sod/ Tazobactam Sod 100 ml @ 25 mls/hr Q8HR IV 03/09/25 14:00 03/10/25 15:03 25 MLS/HR Vancomycin HCl 0 ml @ 0 mls/hr UD IV 03/09/25 11:30 Vancomycin HCl 100 ml @ 100 mls/hr Q12H IV 03/10/25 07:00 03/10/25 16:53 100 MLS/HR Methylprednisolone Sodium Succinate 40 mg DAILY IV 03/10/25 10:00 03/10/25 09:08 40 MG Diagnostic Test (Pha) 1 strip ACHS 03/10/25 11:30 03/10/25 16:59 1 STRIP Insulin Human Regular ACHS SC 03/10/25 11:30 03/10/25 17:07 6 UNITS Dextrose 50 ml UD PRN IV 03/10/25 10:45 Ibuprofen 400 mg Q8HP PRN PO 03/10/25 12:00 Examination Pt is lying on bed General Appearance: Alert, Oriented X3, Cooperative, Mild distress HEENT: Atraumatic, Mucous membranes moist/pink Respiratory: Clear to auscultation, Normal air movement, No added sounds Cardiovascular: Regular rate, Normal S1, Normal S2, No murmurs Abdominal/ : Active bowel sounds, Soft, no distention, no tenderness Extremities: No edema, Normal pulses, No tenderness/swelling Skin: No Significant rash, except past surgical scars Neuro: Normal speech, sensorimotor deficits none Psych/Mental Status: Mental status NL, Mood NL Nurse was there as product safety tester during examination laboratory and microbiology Laboratory Tests 03/10/25 05:52 Test 03/10/25 05:52 Range/Units Serum Glucose 241 H 74-106 mg/dL Microbiology Date/Time Source Procedure Growth Status 03/10/25 05:39 Voided Urine Urine Culture - Preliminary Resulted 03/09/25 11:30 Blood Blood Culture - Preliminary NO GROWTH AFTER 24 HOURS OF INCUBATION. Resulted 03/08/25 08:30 Sputum Gram Stain - Final Resulted 03/08/25 08:30 Sputum Respiratory Culture - Preliminary Resulted Labs and/or images reviewed: Labs reviewed by me, Image(s) reviewed by me Problem List/Assessment/Plan Problem List/Assessment/Plan #COPD exacerbation #Acute hypoxic respiratory failure #Pneumonia Gram-positive versus Gram-negative, viral, atypical #Sepsis likely due to pneumonia Nasal cannula p.r.n. DuoNebs q.4 hours while awake Azithromycin IV Solu-Medrol 40 mg IV b.i.d. Sputum culture COVID and flu tests were negative. Lactic acid trending upwards, patient is given IV fluid. WBC 15.2 Patient is tachycardic IV lactated Ringer's Telemetry monitoring Vancomycin 1.25 g IV Zosyn IV Q 8 hour Blood cultures sent Continue breathing treatments with levalbuterol and ipratropium. Patient was desaturating to 87 while walk test, ABG on room air ordered for RT. #Elevated D-dimer Lower extremity DVT ultrasound: ruled out DVT Wells score below 4 #Hypertension #Chronic diastolic CHF #History of arthritis Hydrochlorothiazide 25 mg daily #Obesity #Dyslipidemia Pravastatin PUD prophylaxis: Protonix DVT prophylaxis: Lovenox Full code status Case discussed with Dr. Cha , patient and RN Plan discussed with: Patient, Other (RN) My Orders My Orders Orders - CHRIS JAUREGUI RESIDENT Procedure Category Date Status Time Ibuprofen Tablet PHA 03/10/25 In Process (Motrin Tablet) 12:00 Abg W/ Co-Ox RT 03/10/25 Logged 15:15 Date of Service: Mar 10, 2025 Billing Provider: ISABELLE CHA MD Common Visit Codes: [id number] INP/OBS CARE(HIGH) Addendum Addendum Addendum I was physically present for the caceres portions of the service provided to patient by THE RESIDENT. I have reviewed the documentation, discussed the case with resident and agree with the resident's documentation except as noted. Also the patient's clinical case was discussed with the patient's nurse. This medical document was created using an electronic medical record system with computerized dictation system. Although this document has been carefully reviewed, there might still be some phonetic and typographical errors. These areas are purely typographical due to imperfections of the software programs, and do not reflect any compromise in the patient's medical care. Late signature. CHRIS JAUREGUI RESIDENT Mar 10, 2025 18:01 ISABELLE CHA MD Mar 12, 2025 05:50
[2025-03-11] VITALS (17 sets, daily range): BP systolic 101–133; BP diastolic 60–80; PULSE 68–95; RESP 16–19; TEMP 98–98.4; O2SAT 92–100
[2025-03-11 07:43] LABS: Hematocrit 39.2 % (36.0-46.0); Hemoglobin 13.3 g/dL (12.2-16.2); Mean Corpuscular Hemoglobin 31.8 pg (28.0-32.0); Mean Corpuscular Volume 93.7 fL (80.0-100.0); Nucleated Red Blood Cells % 0.1 %
[2025-03-11 07:45] LABS: Chloride 103 mmol/L (98-107); Potassium 4.1 mmol/L (3.5-5.1); Sodium 138 mmol/L (136-145)
[2025-03-11 07:46] LABS: Anion Gap 9 (5-15); Carbon Dioxide 26 mmol/L (20-31)
[2025-03-11 07:51] LABS: BUN/Creatinine Ratio 15.1 (10.0-20.0); Blood Urea Nitrogen 13 mg/dL (9-23)
[2025-03-11 07:52] LABS: Calcium 8.6 mg/dL (8.7-10.4); Glucose 118 mg/dL (74-106)
[2025-03-11] MEDS ORDERED: ACETYLCYSTEINE 20%(200MG/ML) SOL 4ML NEB SCH (12:00)
--- NOTE | 2025-03-11 14:11 | DVH ---
XY CHEST XRAY 1 VIEW, HISTORY: CXR COMPARISON: XY CHEST XRAY 1 VIEW on DOS: 03/09/25, XY CHEST PORTABLE on DOS: 03/08/25, XY CHEST PORTABL E on DOS: 08/29/24 XY CHEST XRAY 1 VIEW on DOS: 03/09/25, XY CHEST PORTABLE on DOS: 03/08/25, XY CHEST PORTABLE on DOS: TECHNICAL DATA: 1 view of the chest was obtained. FINDINGS: Lines and tubes: None Cardiomediastinal silhouette: normal Pulmonary vasculature: normal Lung expansion: normal Lung airspace: normal Lung interstitium: normal Pleura: normal Pneumothorax: no Bones: Unremarkable Other: no IMPRESSION: No acute intrathoracic abnormality.
[2025-03-11] MEDS: BUDESONIDE (INHALATION) 0.5 MG/2 ML NEB NEB ONE (14:16)
--- NOTE | 2025-03-11 16:55 | DVHPNRES ---
Progress Note Date Seen: Mar 11, 2025 Resident Creating Document: RADAMES PANIAGUA Medical Necessity Reason Pt with a Central, PICC or Fol: No Subjective Review of Systems This is a 69-year-old female with past medical history of COPD, TIA, hypertension, congestive heart failure, arthritis, and asthma who presented to the emergency department with worsening shortness of breath over the past week, particularly with exertion. Her symptoms were associated with chest tightness, fatigue, chills, productive cough with thick yellow sputum, headache, dizziness, sore throat, and ear pain. She denied fever, chest pain, abdominal pain, nausea, vomiting, urinary symptoms, or recent sick contacts. She reported recent travel to [place] approximately one month ago. Surgical history includes partial hysterectomy, cholecystectomy, left knee and wrist surgeries, and two bladder surgeries. She has a 40 pack-year smoking history but has since quit, and denies alcohol or illicit drug use. Home medications include fluticasone, hydrochlorothiazide, albuterol, Protonix, aspirin, and pravastatin. On arrival, she was noted to be significantly short of breath and was treated with breathing treatments and Solu-Medrol. She remained on room air. COVID and flu tests were negative. D-dimer was elevated, but chest X-ray did not show any significant opacity. The patient was seen and examined at bedside. Overnight events were reviewed. She reported improvement in her shortness of breath but complained of epigastric pain and burning sensation after eating. She denied chest pain, fever, abdominal pain, constipation, urinary symptoms, or other complaints at this time. Objective vital signs Vital Sign Date Time Temp Pulse Resp B/P (MAP) Pulse Ox O2 Delivery O2 Flow Rate FiO2 03/11/25 16:36 98.3 89 19 118/60 (79) 92 98.3 03/11/25 10:00 Nasal Cannula* 2 28 Total Intake and Output 03/10/25 03/10/25 03/11/25 15:00 23:00 07:00 Intake Total 350 ml 1450 ml 600 ml Output Total 1400 ml 600 ml Balance 350 ml 50 ml 0 ml medications Current Medications Medications Dose Ordered Sig/Matthew Route Start Time Stop Time Status Last Admin Dose Admin Sodium Chloride 10 ml Q8HR IV 03/08/25 22:00 03/11/25 14:34 10 ML Ondansetron HCl 4 mg Q4HP PRN IV 03/08/25 19:15 Enoxaparin Sodium 40 mg DAILY SC 03/09/25 10:00 03/11/25 08:33 40 MG Acetaminophen 650 mg Q6HP PRN PO 03/08/25 19:15 03/11/25 13:55 650 MG Azithromycin 250 ml @ 125 mls/hr DAILY IV 03/09/25 10:00 03/11/25 12:27 125 MLS/HR Pantoprazole Sodium 40 mg DAILY@0600 PO 03/09/25 06:00 03/11/25 05:53 40 MG Aspirin 81 mg DAILY PO 03/09/25 10:00 03/11/25 08:33 81 MG Ipratropium [place] 0.5 mg Q6HWA [facility] 03/09/25 12:00 03/11/25 11:26 0.5 MG Levalbuterol HCl 0.625 mg Q6HWA NEB 03/09/25 12:00 03/11/25 11:26 0.625 MG Piperacillin Sod/ Tazobactam Sod 100 ml @ 25 mls/hr Q8HR IV 03/09/25 14:00 03/11/25 15:22 25 MLS/HR Vancomycin HCl 0 ml @ 0 mls/hr UD IV 03/09/25 11:30 Vancomycin HCl 100 ml @ 100 mls/hr Q12H IV 03/10/25 07:00 03/11/25 05:52 100 MLS/HR Methylprednisolone Sodium Succinate 40 mg DAILY IV 03/10/25 10:00 03/11/25 08:33 40 MG Diagnostic Test (Pha) 1 strip ACHS 03/10/25 11:30 03/11/25 16:21 1 STRIP Insulin Human Regular ACHS SC 03/10/25 11:30 03/11/25 16:36 4 UNITS Dextrose 50 ml UD PRN IV 03/10/25 10:45 Ibuprofen 400 mg Q8HP PRN PO 03/10/25 12:00 Budesonide 0.5 mg BID NEB 03/11/25 22:00 Acetylcysteine 200 mg Q6HWA [facility] 03/11/25 18:00 Examination General Appearance: Alert, Oriented X3, Cooperative, Mild distress HEENT: Atraumatic, Mucous membranes moist/pink Respiratory: Bilateral scattered wheezing with crackles Cardiovascular: Regular rate, Normal S1, Normal S2, No murmurs Abdominal/ : Active bowel sounds, Soft, no distention, no tenderness Extremities: No edema, Normal pulses, No tenderness/swelling Skin: No Significant rash, except past surgical scars Neuro: Normal speech, sensorimotor deficits none Psych/Mental Status: Mental status NL, Mood NL Nurse was there as classification officer during examination laboratory and microbiology Laboratory Tests 03/11/25 06:09 Test 03/11/25 06:09 Range/Units Serum Glucose 118 H 74-106 mg/dL Microbiology Date/Time Source Procedure Growth Status 03/10/25 05:39 Voided Urine Urine Culture - Preliminary Resulted 03/10/25 03:20 Nose MRSA Screen - Final Complete 03/09/25 11:30 Blood Blood Culture - Preliminary NO GROWTH AFTER 48 HOURS OF INCUBATION. Resulted 03/08/25 08:30 Sputum Gram Stain - Final Resulted 03/08/25 08:30 Sputum Respiratory Culture - Preliminary Resulted Labs and/or images reviewed: Labs reviewed by me, Image(s) reviewed by me Problem List/Assessment/Plan Problem List/Assessment/Plan #COPD exacerbation #Acute hypoxic respiratory failure #Pneumonia Gram-positive versus Gram-negative, viral, atypical #Sepsis likely due to pneumonia Chest X-ray on 03/11/25: No acute intrathoracic abnormality. Nasal cannula p.r.n. DuoNebs q.4 hours while awake Azithromycin IV Solu-Medrol 40 mg IV b.i.d. Sputum culture COVID and flu tests were negative. Lactic acid trending downwards (5.0 -> 3.2 -> 2.0) WBC 15.2 -> 12.4 Patient is tachycardic IV lactated Ringer's Telemetry monitoring Vancomycin 1.25 g IV Zosyn IV Q 8 hour Blood cultures sent Continue breathing treatments with levalbuterol and ipratropium. Patient was desaturating to 87 while walk test, ABG on room air ordered for RT. start Budesonide 0.5 mg #Elevated D-dimer Lower extremity DVT ultrasound: ruled out DVT Wells score below 4 #Hypertension #Chronic diastolic CHF #History of arthritis Hydrochlorothiazide 25 mg daily #Obesity #Dyslipidemia Pravastatin PUD prophylaxis: Protonix DVT prophylaxis: Lovenox Plan discussed with Dr. Venegas Plan discussed with: Patient Date of Service: Mar 11, 2025 Billing Provider: ISABELLE VENEGAS MD Common Visit Codes: [id number] INP/OBS CARE(HIGH) Addendum Addendum Addendum I was physically present for the caceres portions of the service provided to patient by THE RESIDENT. I have reviewed the documentation, discussed the case with resident and agree with the resident's documentation except as noted. Also the patient's clinical case was discussed with the patient's nurse. This medical document was created using an electronic medical record system with computerized dictation system. Although this document has been carefully reviewed, there might still be some phonetic and typographical errors. These areas are purely typographical due to imperfections of the software programs, and do not reflect any compromise in the patient's medical care. Late signature. RADAMES PANIAGUA Mar 11, 2025 16:55 ISABELLE VENEGAS MD Mar 12, 2025 05:51
[2025-03-11] MEDS: IBUPROFEN 400 MG TAB PO PRN (18:45)
[2025-03-11] MEDS: ACETYLCYSTEINE 20%(200MG/ML) SOL 4ML NEB SCH (19:06)
[2025-03-11] MEDS: BUDESONIDE (INHALATION) 0.5 MG/2 ML NEB NEB SCH (19:07)
[2025-03-11] MEDS: VANCOMYCIN 1GM/250ML KIT 250 ML IV SCH (20:46)
[2025-03-12] VITALS (13 sets, daily range): BP systolic 100–149; BP diastolic 60–82; PULSE 71–100; RESP 16–20; TEMP 36.8; O2SAT 92–99
[2025-03-12 06:49] LABS: Hematocrit 38.4 % (36.0-46.0); Hemoglobin 13.6 g/dL (12.2-16.2); Mean Corpuscular Hemoglobin 33.0 pg (28.0-32.0); Mean Corpuscular Volume 93.0 fL (80.0-100.0); Nucleated Red Blood Cells % 0.1 %
[2025-03-12 07:02] LABS: Anion Gap 8 (5-15); Carbon Dioxide 29 mmol/L (20-31); Chloride 102 mmol/L (98-107); Potassium 4.4 mmol/L (3.5-5.1); Sodium 139 mmol/L (136-145)
[2025-03-12 07:06] LABS: Calcium 8.5 mg/dL (8.7-10.4)
[2025-03-12 07:08] LABS: BUN/Creatinine Ratio 15.9 (10.0-20.0); Blood Urea Nitrogen 14 mg/dL (9-23); Glucose 85 mg/dL (74-106)
--- NOTE | 2025-03-12 10:25 | DVHDSRES ---
Discharge Summary Date of Admission Resident Creating Document: CHRIS JAUREGUI Mar 08, 2025 at 19:08 Date of Discharge: Mar 10, 2025 Labs/Diagnostic Data: Laboratory Results Test 03/12/25 05:57 03/12/25 05:52 03/11/25 17:50 03/11/25 06:09 POC Glucose 99 mg/dl (70-106) White Blood Count 10.1 10^3/uL (4.4-10.8) Red Blood Count 4.13 10^6/uL (4.0-5.20) Hemoglobin 13.6 g/dL (12.2-16.2) Hematocrit 38.4 % (36.0-46.0) Mean Corpuscular Volume 93.0 fL (80.0-100.0) Mean Corpuscular Hemoglobin 33.0 pg (28.0-32.0) Mean Corpuscular Hemoglobin Concent 35.4 g/dL (32.0-36.0) Red Cell Distribution Width 13.1 % (11.8-14.3) Platelet Count 197 10^3/uL (140-450) Mean Platelet Volume 8.8 fL (6.9-10.8) Neutrophils (%) (Auto) 65.2 % (37.0-80.0) Lymphocytes (%) (Auto) 27.2 % (10.0-50.0) Monocytes (%) (Auto) 7.2 % (0.0-12.0) Eosinophils (%) (Auto) 0.3 % (0.0-7.0) Basophils (%) (Auto) 0.1 % (0.0-2.0) Neutrophils # (Auto) 6.6 10 ^3/uL (1.6-8.6) Lymphocytes # (Auto) 2.7 10 ^3/uL (0.4-5.4) Monocytes # (Auto) 0.7 10 ^3/uL (0-1.3) Eosinophils # (Auto) 0 10 ^3/uL (0-0.8) Basophils # (Auto) 0 10 ^3/uL (0-0.2) Nucleated Red Blood Cells 0.1 % Sodium Level 139 mmol/L (136-145) Potassium Level 4.4 mmol/L (3.5-5.1) Chloride Level 102 mmol/L (98-107) Carbon Dioxide Level 29 mmol/L (20-31) Anion Gap 8 (5-15) Blood Urea Nitrogen 14 mg/dL (9-23) Creatinine 0.88 mg/dL (0.550-1.02) Glomerular Filtration Rate Calc 71 mL/min (>90) BUN/Creatinine Ratio 15.9 (10.0-20.0) Serum Glucose 85 mg/dL (74-106) Calcium Level 8.5 mg/dL (8.7-10.4) Vancomycin Level Trough 9.7 ug/mL (5-10) Lactic Acid Level 2.0 mmol/L (0.4-2.0) Test 03/10/25 15:34 03/10/25 05:52 03/09/25 17:04 03/08/25 19:22 Blood Gas Specimen Type Arterial Blood Gas Sample Site Left radial Blood Gas Patient Temperature 37.0 Arterial Blood Date Drawn [id number] Arterial Blood pH 7.410 (7.350-7.450) Arterial Blood Partial Pressure CO2 36.2 mmHg (32.0-45.0) Arterial Blood Partial Pressure O2 59.8 mmHg (83.0-108.0) Arterial Blood HCO3 22.4 mmol/L (21.0-28.0) Arterial Blood Oxygen Saturation 91.4 % (94.0-98.0) Arterial Blood Base Excess -1.6 mmol/L (-2.0-3.0) Arterial Blood Oxyhemoglobin 90.6 % (94.0-98.0) Arterial Blood Carboxyhemoglobin 0.4 % (0.5-1.5) Arterial Blood Methemoglobin 0.5 % (0.0-1.5) Jagdish Test Modified Blood Gas Total Hemoglobin 14.90 g/dL (12.0-16.0) Blood Gas Modality Room air FiO2 % 21.0 Hemoglobin A1c 6.0 % A1C (<5.7) Total Bilirubin 0.3 mg/dL (0.2-1.0) Aspartate Amino Transferase (AST) 15 U/L (13-40) Alanine Aminotransferase (ALT) 20 U/L (7-40) Alkaline Phosphatase 109 U/L (46-116) Total Protein 5.8 g/dL (5.7-8.2) Albumin 3.5 g/dL (3.2-4.8) Urine Color Light-yellow (Yellow) Urine Clarity Clear (Clear) Urine pH 5.5 (5.0-9.0) Urine Specific [place] 1.013 (1.001-1.035) Urine Protein Negative (Negative) Urine Ketones 1+ (Negative) Urine Blood Negative /uL (Negative) Urine Nitrite Negative (Negative) Urine Bilirubin Negative (Negative) Urine Urobilinogen Normal mg/dL (Negative) Urine Leukocyte Esterase Negative /uL (Negative) Urine RBC <1 /hpf (0 - 4) Urine Microscopic WBC < 1 /HPF (0-5) Urine Squamous Epithelial Cells Few /hpf (<5) Urine Bacteria None seen /hpf (None Seen) Urine Glucose 4+ mg/dL (Normal) Test 03/08/25 12:35 03/08/25 12:30 03/08/25 12:17 03/08/25 11:14 D-Dimer, Quantitative 0.59 mg/L FEU (0.0-0.49) Influenza Type A Antigen Negative (Negative) Influenza Type B Antigen Negative (Negative) Troponin I High Sensitivity < 3 ng/L (</=34) Thyroid Stimulating Hormone (TSH) 1.05 uIU/mL (0.55-4.78) B-Type Natriuretic Peptide 24.29 pg/mL (0-100) Test 03/08/25 00:00 SARS-CoV-2 Antigen (Rapid) Negative (NEGATIVE) Other Laboratory Tests 03/12/25 05:52 Brief Hx & Hospital Course: The patient was septic with lactic acid This is a 69-year-old female with past medical history of COPD, TIA, hypertension, congestive heart failure, arthritis, and asthma who presented to the emergency department with worsening shortness of breath over the past week, particularly with exertion. Her symptoms were associated with chest tightness, fatigue, chills, productive cough with thick yellow sputum, headache, dizziness, sore throat, and ear pain. She denied fever, chest pain, abdominal pain, nausea, vomiting, urinary symptoms, or recent sick contacts. She reported recent travel to [place] approximately one month ago. Surgical history includes partial hysterectomy, cholecystectomy, left knee and wrist surgeries, and two bladder surgeries. She has a 40 pack-year smoking history but has since quit, and denies alcohol or illicit drug use. Home medications include fluticasone, hydrochlorothiazide, albuterol, Protonix, aspirin, and pravastatin. On arrival, she was noted to be significantly short of breath and was treated with breathing treatments and Solu-Medrol. She remained on room air. COVID and flu tests were negative. D-dimer was elevated, but chest X-ray did not show any significant opacity. The patient was diagnosed with acute hypoxic respiratory failure due to COPD exacerbation or pneumonia due to Gram-positive or Gram-negative viral or atypical. The patient was septic with lactic acid elevated initially, later downtrending. Patient was treated with a nasal cannula oxygen p.r.n. DuoNebs. She was given azithromycin IV initially later the antibiotic was changed to vancomycin and Zosyn. The patient was treated with IV fluids and continued breathing treatments with levalbuterol and ipratropium. The patient was monitored on telemetry throughout the admission. Urine culture revealed no growth, blood culture revealed no growth after 24 hours, MRSA screen was negative. The patient was desaturating to below 88 on initial walk test, patient was treated with budesonide, 0.5 mg, however, ABG revealed PO2 68, hence the patient did not qualify for home oxygen. Initial D-dimer was elevated. DVT was ruled out by lower extremity ultrasound. Hypertension was controlled with hydrochlorothiazide 25 mg. Dyslipidemia was treated with pravastatin. PUD prophylaxis was given with Protonix and DVT prophylaxis was given Lovenox. Patient was hemodynamically stable on discharge, verbalized understanding of the treatment and discharge plan. Examination General Appearance: Alert, Oriented X3, Cooperative, Mild distress HEENT: Atraumatic, Mucous membranes moist/pink Respiratory: Bilateral scattered wheezing with crackles Cardiovascular: Regular rate, Normal S1, Normal S2, No murmurs Abdominal/ : Active bowel sounds, Soft, no distention, no tenderness Extremities: No edema, Normal pulses, No tenderness/swelling Skin: No Significant rash, except past surgical scars Neuro: Normal speech, sensorimotor deficits none Psych/Mental Status: Mental status NL, Mood NL Nurse was there as financial rep during examination Operations or Procedures 03/08/25: BL lower DVT No sonographic evidence of deep venous thrombosis throughout the bilateral lower extremities from the popliteal veins to the common femoral veins. CXR on 03/11/25: No acute intrathoracic abnormality. Condition at Discharge: Stable Final Diagnosis/Problems List #COPD exacerbation #Acute hypoxic respiratory failure #Pneumonia Gram-positive versus Gram-negative, viral, atypical #Sepsis likely due to pneumonia #Hypertension #Chronic diastolic CHF #History of arthritis #Obesity #Dyslipidemia Discharge Disposition: Home Discharge Instruct/Medications Diet: Consistent carbohydrate, Cardiac 2g Na,low cholest Activity: No Restrictions, As Tolerated Follow Up/Referral: Follow up with DC clinic in 1 week Follow up with PCP in 2 weeks Medications: Steroids, antibiotics, breathing treatments Scheduled Albuterol Sulfate (Ventolin Mdi), 90 MCG IN Q4HR Aspirin (Aspirin Low Dose), 1 TAB PO DAILY, (Reported) Budesonide-Formoterol Fumarate (Breyna 160-4.5 Mcg/Act), 2 PUFF IN BID Cholecalciferol (Vitamin D), 5,000 UNIT OR DAILY Cyclobenzaprine Hcl (Cyclobenzaprine Hcl), 1 TAB PO QHSP Eyveknruaby-Xlcrkxndwfeb-Yrrlr (Trelegy Ellipta 100-62.5-25 Mcg/INH), 1 AER IN DAILY Hydrochlorothiazide (Hydrochlorothiazide), 1 CAP PO DAILY, (Reported) Ipratropium [place] Hfa (Atrovent Hfa), 17 MCG IN Q4HR Levofloxacin Hemihydrate (Levaquin 500 Mg), 1 TAB PO DAILY Pantoprazole Sodium Sesquihydr (Protonix), 40 MG PO DAILY Pravastatin Sodium (Pravachol Tablet), 10 MG PO DAILY, (Reported) Prednisone (Prednisone), 40 MG PO DAILY Scheduled PRN Albuterol Sulfate (Ventolin Mdi), 90 MCG IN Q4HP PRN Miscellaneous Medications Albuterol Sulfate (Albuterol Sulfate Hfa), INH, (Reported) [place] 3 Fatty Acids-Evening Pr (Retaine Om3), 1 CAP PO, (Reported) Discontinued Medications Levofloxacin Hemihydrate (Levofloxacin), 750 MG PO DAILY Nitrofurantoin Monohydrate Mac (Macrobid), 100 MG PO BID Prednisone (Prednisone), 20 MG PO DAILY Prednisone (Prednisone), 10 MG PO DAILY Prednisone (Prednisone), 10 MG PO BID Prednisone (Prednisone), 20 MG PO BID Discharge Statement: "Patient was advised to return to the ER or call 911 if any headaches, dizziness, shortness of breath, chest pain, abdominal pain, bleeding, fevers, or worsening of medical condition. Patient was counseled about treatment plan, medications, possible side effects, patientverbalized understanding. All questions were answered to the best of my ability. This discharge took greater then 30 minutes in planning, reviewing documentation, counseling the patient, and discussing with other team members." ASSESSMENT ASSESSMENT Assessment Exacerbation of COPD Date of Service: Mar 12, 2025 Billing Provider: CHRISTINA SOUTH MD Common Visit Codes: 43155-UDH/OBS DISCH DAY >30min JUVENTINO,CHRIS RESIDENT Mar 12, 2025 10:25 CHRISTINA SOUTH MD Mar 13, 2025 19:12
[2025-03-12] MEDS ORDERED: BUDE1AER16 IN (15:51)
== END 2025-03-12 16:50 | disposition home or self-care (01) | DRG 871 ==
LOC: ER 10:51 → OVERFLOW 19:08 → WEST WING 21:50 → TELE-WESTW 03-09 17:43
PROVIDERS: ADMIT Internal Medicine Geriatric Medicine; ATTEND Internal Medicine Geriatric Medicine
DX: A41.59 Other Gram-negative sepsis (principal); J12.9 Viral pneumonia, unspecified; J15.69 Pneumonia due to other Gram-negative bacteria; J96.01 Acute respiratory failure with hypoxia; J15.9 Unspecified bacterial pneumonia; I50.32 Chronic diastolic (congestive) heart failure; J44.1 Chronic obstructive pulmonary disease with (acute) exacerbation; J44.0 Chronic obstructive pulmonary disease with (acute) lower respiratory infection; Z20.822 Contact with and (suspected) exposure to COVID-19; E78.5 Hyperlipidemia, unspecified; E66.9 Obesity, unspecified; I11.0 Hypertensive heart disease with heart failure; Z86.73 Personal history of transient ischemic attack (TIA), and cerebral infarction without residual deficits; Z90.710 Acquired absence of both cervix and uterus; Z90.49 Acquired absence of other specified parts of digestive tract; Z87.891 Personal history of nicotine dependence; Z68.37 Body mass index [BMI] 37.0-37.9, adult
CPT/HCPCS: 36415; 36600; 71045; 80048; 80053; 80202; 81001; 82565; 82805; 82962; 83036; 83605; 83880; 84443; 84484; 85025; 85379; 87040; 87070; 87081; 87086; 87205; 87426; 87804; 93005; 93970; 94640; 96374; G0378; J1815; J2543